=== PATIENT | female | born 1930 | race Caucasian/White ===

== ENCOUNTER 2018-07-06 21:06 | Inpatient (IN) ==
--- NOTE | 2018-07-06 21:42 | ED ---
HPI General Chief complaint: Medical Clearance Stated complaint: Poss DVT Time Seen by Provider: 07/06/18 21:08 Source: patient, EMS and old records reviewed Mode of arrival: EMS Limitations: altered mental status History of Present Illness HPI Narrative: 87 year old female with dementia EVAC from [facility] for possible DVT. She has a history of internal and external illiac thrombectomies on her right leg on 06/13/18, a-fib and a history of DVTs. She was unable to give a history but the EMS said the [facility] employees told them the redness and swelling on the lateral aspect of her right lower leg started yesterday. On exam the patient expresses discontent from all physical touch and when asked directly if her leg hurts she says no. She denies chest pain, SOB, and belly pain. She does have a history of dementia and is documented here. Patient herself cannot really give any history. She does appear to be in some discomfort she does appear to have redness and swelling to the right leg. Home Medications Medication Instructions Recorded Confirmed allopurinol 1 tab PO DAILY 05/23/18 06/12/18 atenolol 0.5 tab PO DAILY 05/23/18 06/12/18 cyanocobalamin (vitamin B-12) 1,000 mcg PO DAILY 05/23/18 06/12/18 [Vitamin B-12] donepezil 1 tab PO HS 05/23/18 06/12/18 gabapentin 1 tab PO HS 05/23/18 06/12/18 levothyroxine 1 tab PO DAILY 05/23/18 06/12/18 memantine 1 tab PO DAILY 05/23/18 06/12/18 mirtazapine 1 tab PO HS 05/23/18 06/12/18 multivitamin 1 tab PO DAILY 05/23/18 06/12/18 torsemide 1 tab PO BID 05/23/18 06/12/18 albuterol sulfate [Ventolin HFA] 2 puff INHALATION Q6H PRN 06/12/18 06/12/18 cholecalciferol (vitamin D3) 1,000 unit PO DAILY 06/12/18 06/12/18 [Vitamin D3] cyanocobalamin (vitamin B-12) 1,000 mcg PO DAILY 06/12/18 06/12/18 [Vitamin B-12] ipratropium-albuterol 3 ml INHALATION Q6H PRN 06/12/18 06/12/18 levothyroxine 175 mcg PO DAILY 06/12/18 06/12/18 potassium chloride 20 meq PO BID 06/12/18 06/12/18 Previous Rx's Medication Instructions Recorded atorvastatin 40 mg PO HS tab 06/19/18 hydrocodone-acetaminophen 1 tab PO Q8H PRN #12 tab 06/19/18 nifedipine [Procardia] 10 mg PO QID cap 06/19/18 rivaroxaban [Xarelto] 15 mg PO BID tab 06/19/18 Allergies Allergy/AdvReac Type Severity Reaction Status Date / Time No Known Allergies Allergy Verified 07/06/18 21:12 Review of Systems ROS: all other systems reviewed are negative [facility] Medical History Medical History Alzheimer disease (Acute) Atrial fibrillation (Acute) DVT (deep venous thrombosis) (Acute) Dementia (Acute) Depressive disorder (Acute) Gout (Acute) HTN (hypertension) (Acute) Hyperchloremia (Acute) Hypothyroidism (Acute) Polyneuropathy (Acute) Surgical history unknown (Acute) Thrombocytopenia (Acute) Family History Family History Other HTN (hypertension) Social History Social History Substance History: No History of Abuse Second Hand Smoke Exposure: No Smoking Status: Former smoker Tobacco Type: Cigarettes How Often Do You Have a Drink Containing Alcohol: Unable to Obtain Recent Travel in [facility] within the Last 8 Weeks: No Recent Out of Country Travel within the Last 8 Weeks: No Immunization History Tetanus Immunization: Unable to Assess Exam Narrative Exam Narrative: GENERAL: Well appearing. SKIN: Focused skin assessment warm/dry. HEAD: Atraumatic. Normocephalic. EYES: Pupils equal and round. No scleral icterus. No injection or drainage. ENT: No nasal bleeding or discharge. Mucous membranes pink and moist. Tongue is midline. No Uvula deviation. NECK: Trachea midline. No JVD. CARDIOVASCULAR: Regular rate and rhythm. No murmur appreciated. RESPIRATORY: No accessory muscle use. Clear to auscultation. Breath sounds equal bilaterally. GASTROINTESTINAL: Abdomen soft, non-tender, nondistended. Hepatic and splenic margins not palpable. MUSCULOSKELETAL: No obvious deformities. No clubbing. No cyanosis. No edema. Full range of motion of the upper and lower extremities bilaterally. Patient does have low pulses noted on the right leg compared to the left. For the most part there is a palpable on the dorsalis pedis. Both pulses are heard in the Doppler bilaterally. 2+ with a Doppler. Patient does have an area of erythema which is about almost 10 cm in diameter by 4 cm she does have what appears to be a small hematoma. Area of erythema is on the lateral aspect of the right lower leg. NEUROLOGICAL: Awake and alert. No obvious cranial nerve deficits. Motor grossly within normal limits. Normal speech. PSYCHIATRIC: Appropriate mood and affect; insight and judgment normal. Course Initial Documented Vital Signs Temperature 97.8 F 07/06/18 21:12 Pulse Rate 56 L 07/06/18 21:12 Respiratory Rate 20 07/06/18 21:12 Blood Pressure 135/72 07/06/18 21:12 Pulse Oximetry 94 L 07/06/18 21:12 Last Documented Vital Signs Temperature 97.8 F 07/06/18 21:12 Pulse Rate 66 07/06/18 23:30 Respiratory Rate 18 07/06/18 23:30 Blood Pressure 117/59 L 07/06/18 23:30 Pulse Oximetry 94 L 07/06/18 23:30 Medical Decision Making GAVINO Attestation GAVINO supervised visit: Yes Attestation: I, Dr. Macdonald, have reviewed the advance practice practitioner' s documentation and am in agreement, met with the patient face to face, made the diagnosis, and the medical decision making was done by me. *My assessment and Findings: 87-year-old female status post right lower extremity thrombectomy presents for evaluation of redness and swelling to the right anterior lower leg. The appearance is most consistent with cellulitis and less likely DVT. However will check ultrasound of right lower extremity. Patient has weakly palpable pulses, so I do not suspect arterial occlusion. We are unable to get CTA due to elevated creatinine. Will admit to medicine for cellulitis and renal failure. MDM Narrative Medical decision making narrative: 87-year-old female who presents to the ED for evaluation of right leg swelling and pain. Patient was properly examined and was found to have signs and symptoms of unclear etiology but does appear to be likely cellulitis. Although her pulses are hard to find they are present. My attending herself evaluated the patient and was able to get pulses but palpable as well as with Doppler. She does appear to have what appears to be cellulitic changes to the lateral aspect of the leg. She has had recent surgery in the leg. At this time labs and imaging were ordered. Ultrasound was done to rule out DVT although this is deemed to be less likely. Patient is already anticoagulated with Xarelto. Patient will start IV antibiotics. Labs and imaging show what appears to be acute kidney injury what appears to be cellulitis. Case discussed with my attending who recommends admission for IV antibiotics and further evaluation. Case discussed with Dr. Rolon who agrees admission for observation further evaluation and treatment. Medical Screen Exam Complete: Yes Emergency Medical Condition: Yes Differential Diagnosis Differential Diagnosis: Cellulitis versus DVT versus peripheral artery disease versus postsurgical complication Medical Records Medical records reviewed: Yes I reviewed the patient's medical records. Lab Data Lab results reviewed: Yes I reviewed the patient's lab results. Result diagrams: 07/06/18 23:25 07/06/18 21:40 Lab Results 07/06/18 07/06/18 07/06/18 Range/Units 21:40 21:40 23:25 WBC 5.9 (4.0-11.0) th/mm3 RBC 3.22 L (4.00-5.30) mil/mm3 Hgb 9.4 L (11.6-15.3) gm/dL Hct 29.1 L (35.0-46.0) % MCV 90.4 (80.0-100.0) fL MCH 29.3 (27.0-34.0) pg MCHC 32.5 (32.0-36.0) % RDW 17.5 H (11.6-17.2) % Plt Count 165 (150-450) th/mm3 MPV 7.2 (7.0-11.0) fL Neut % (Auto) 69.5 (16.0-70.0) % Lymph % (Auto) 17.4 (9.0-44.0) % [place] % (Auto) 7.3 (0.0-8.0) % Eos % (Auto) 5.1 H (0.0-4.0) % Baso % (Auto) 0.7 (0.0-2.0) % Neut # (Auto) 4.1 (1.8-7.7) th/mm3 Lymph # (Auto) 1.0 (1.0-4.8) th/mm3 [place] # (Auto) 0.4 (0.0-0.9) th/mm3 Eos # (Auto) 0.3 (0.0-0.4) th/mm3 Baso # (Auto) 0.0 (0.0-0.2) th/mm3 WBC Differential . Differential Comment Auto diff final PT (9.8-11.6) sec INR Ratio Sodium 142 (136-145) meq/L Potassium 4.5 (3.5-5.1) meq/L Chloride 104 (98-107) meq/L Carbon Dioxide 31.1 (21.0-32.0) meq/L Anion Gap 7 (5-15) meq/L BUN 35 H (7-18) mg/dL Creatinine 1.67 H (0.50-1.00) mg/dL Estimated GFR 29 L (>89) mL/min Random Glucose 137 H (74-106) mg/dL Lactic Acid 1.4 (0.4-2.0) mmol/L Calcium 8.7 (8.5-10.1) mg/dL Magnesium 2.5 (1.5-2.5) mg/dL Total Bilirubin 0.6 (0.2-1.0) mg/dL AST 42 H (15-37) U/L ALT 24 (10-53) U/L Alkaline Phosphatase 98 (45-117) U/L Total Protein 7.3 (6.4-8.2) g/dL Albumin 3.2 L (3.4-5.0) g/dL 07/06/18 Range/Units 23:25 WBC (4.0-11.0) th/mm3 RBC (4.00-5.30) mil/mm3 Hgb (11.6-15.3) gm/dL Hct (35.0-46.0) % MCV (80.0-100.0) fL MCH (27.0-34.0) pg MCHC (32.0-36.0) % RDW (11.6-17.2) % Plt Count (150-450) th/mm3 MPV (7.0-11.0) fL Neut % (Auto) (16.0-70.0) % Lymph % (Auto) (9.0-44.0) % [place] % (Auto) (0.0-8.0) % Eos % (Auto) (0.0-4.0) % Baso % (Auto) (0.0-2.0) % Neut # (Auto) (1.8-7.7) th/mm3 Lymph # (Auto) (1.0-4.8) th/mm3 [place] # (Auto) (0.0-0.9) th/mm3 Eos # (Auto) (0.0-0.4) th/mm3 Baso # (Auto) (0.0-0.2) th/mm3 WBC Differential Differential Comment PT 13.6 H (9.8-11.6) sec INR 1.3 Ratio Sodium (136-145) meq/L Potassium (3.5-5.1) meq/L Chloride (98-107) meq/L Carbon Dioxide (21.0-32.0) meq/L Anion Gap (5-15) meq/L BUN (7-18) mg/dL Creatinine (0.50-1.00) mg/dL Estimated GFR (>89) mL/min Random Glucose (74-106) mg/dL Lactic Acid (0.4-2.0) mmol/L Calcium (8.5-10.1) mg/dL Magnesium (1.5-2.5) mg/dL Total Bilirubin (0.2-1.0) mg/dL AST (15-37) U/L ALT (10-53) U/L Alkaline Phosphatase (45-117) U/L Total Protein (6.4-8.2) g/dL Albumin (3.4-5.0) g/dL Imaging Data Attestation: I personally reviewed and interpreted this imaging study as follows : Radiologist's impression: Chest X-Ray 07/06/18 21:19 CONCLUSION: 1. Mild cardiomegaly. 2. Tiny left pleural effusion. Venous Doppler Study 07/06/18 21:19 CONCLUSION: 1. The study is negative for lower extremity deep venous thrombosis. Discharge Plan Discharge Disposition Patient Disposition: ED Admit(ED Internal Use Only) Discharge Order Discharge Orders: ED Use Only Admit Order (Routine); Ordered 07/06/18 Ordered By: Arcadio Richards Discharge Details Diagnosis: Cellulitis, Peripheral arterial disease Physicians Team ED Provider: Rylee Macdonald ED Midlevel Provider: Arcadio Richards Primary Care Provider: UNKNOWN, Attending Provider: Giovanna Rolon Other Providers: [employer] Status ED Status: Admitted Observation Patient
--- NOTE | 2018-07-06 21:50 | XR ---
EXAM DATE: 07/06/2018 9:45 PM EST AGE/SEX: 87 years / Female INDICATIONS: Cough and shortness of breath. CLINICAL DATA: This is the patient's initial encounter. Patient reports that signs and symptoms have been present for 1 day and indicates a pain score of 0/10. MEDICAL/SURGICAL HISTORY: . Dementia. DVT. A-fib. None. COMPARISON: [facility], CHEST 1V SINGLE AP, 06/15/2018. . FINDINGS: A single AP view of the chest demonstrates the lungs to be symmetrically aerated without evidence of mass, infiltrate or effusion. Mild cardiomegaly. Tiny left pleural effusion. The cardiomediastinal co ntours are unremarkable. Osseous structures are intact. CONCLUSION: 1. Mild cardiomegaly. 2. Tiny left pleural effusion. Electronically signed by: Sixto Soto MD Board Certified Radiologist 07/06/2018 9:48 PM EST
[2018-07-06] MEDS ORDERED: Morphine Inj 4 MG/ML Vial IV.PUSH ONE (21:51)
[2018-07-06 22:19] LABS: Alanine Aminotransferase 24 U/L (10-53)
--- NOTE | 2018-07-06 22:19 | US ---
EXAM DATE: 07/06/2018 10:17 PM EST AGE/SEX: 87 years / Female INDICATIONS: Right leg edema. CLINICAL DATA: This is the patient's initial encounter. Patient reports that signs and symptoms have been present for 1 day and indicates a pain score of 9/10. MEDICAL/SURGICAL HISTORY: Alzheimer's disease. Atrial fibrillation. Dementia. Depressive disord er. DVT. HTN. Hyperchloremia. Hypothyroidism. Polyneuropathy. Thrombocytopenia. None. COMPARISON: [facility] [place], US VENOUS DOPPLER LEG BI, 06/12/2018. . TECHNIQUE: Venous ultrasound of both lower extremities was performed from the inguinal ligament to t he proximal calf. Real-time, color Doppler and spectral tracing, compression and augmentation techni ques were used. FINDINGS: Normal compression of the deep venous system from the inguinal region to the proximal calf . No echogenic clot is seen. Normal response of the venous system to augmentation and respiration. CONCLUSION: 1. The study is negative for lower extremity deep venous thrombosis. Electronically signed by: Sixto Soto MD Board Certified Radiologist 07/06/2018 10:18 PM EST
[2018-07-06 22:21] LABS: Alkaline Phosphatase 98 U/L (45-117); Total Protein 7.3 g/dL (6.4-8.2)
[2018-07-06 22:23] LABS: Albumin 3.2 g/dL (3.4-5.0); Anion Gap 7 meq/L (5-15); Aspartate Aminotransferase 42 U/L (15-37); Blood Urea Nitrogen 35 mg/dL (7-18); Calcium 8.7 mg/dL (8.5-10.1); Carbon Dioxide 31.1 meq/L (21.0-32.0); Chloride 104 meq/L (98-107); Glomerular Filtration Rate 29 mL/min (>89); Glucose,Random 137 mg/dL (74-106); Magnesium 2.5 mg/dL (1.5-2.5); Sodium 142 meq/L (136-145)
[2018-07-06 22:24] LABS: Potassium 4.5 meq/L (3.5-5.1)
[2018-07-06] MEDS ORDERED: Piperacil/Tazo 3.375 GM Premix 3.375 GM/50 ML PIGGYBACK IV.SIG ONE (23:41)
[2018-07-06] MEDS ORDERED: Vancomycin Inj 1,000 MG in Sodium Chlor 0.9% Inj 250 ML IV.SIG ONE (23:41)
[2018-07-06] MEDS ORDERED: Sodium Chlor 0.9% Inj 500 ML IV.SIG SCH (23:45)
[2018-07-06 23:53] LABS: INR 1.3 Ratio; Prothrombin Time 13.6 sec (9.8-11.6)
[2018-07-06 23:55] LABS: Baso % (Auto) 0.7 % (0.0-2.0); Eos # (Auto) 0.3 th/mm3 (0.0-0.4); Eos % (Auto) 5.1 % (0.0-4.0); Hematocrit 29.1 % (35.0-46.0); Hemoglobin 9.4 gm/dL (11.6-15.3); Lymph % (Auto) 17.4 % (9.0-44.0); Mean Corpuscular HGB Conc 32.5 % (32.0-36.0); Mean Corpuscular Hemoglobin 29.3 pg (27.0-34.0); Mean Corpuscular Volume 90.4 fL (80.0-100.0); Mean Platelet Volume 7.2 fL (7.0-11.0); Mono # (Auto) 0.4 th/mm3 (0.0-0.9); Mono % (Auto) 7.3 % (0.0-8.0); Neut # (Auto) 4.1 th/mm3 (1.8-7.7); Neut % (Auto) 69.5 % (16.0-70.0); Platelet Count 165 th/mm3 (150-450); Red Blood Count 3.22 mil/mm3 (4.00-5.30); Red Cell Distribution Width 17.5 % (11.6-17.2); White Blood Count 5.9 th/mm3 (4.0-11.0)
[2018-07-07] MEDS ORDERED: Bisacodyl 10 MG Supp RECTAL PRN (01:43)
[2018-07-07] MEDS ORDERED: Vancomycin Consult Pharmacy OTHER PRN (01:45)
--- NOTE | 2018-07-07 02:52 | P.HPIM ---
History of Present Illness Service: [facility] Primary Care Physician: UNKNOWN Chief Complaint: Right lower extremity cellulitis History of Present Illness: 87-year-old female with a history of dementia, gout , hypertension, hyperlipidemia and hypothyroidism was sent to the ER by nursing facility complaints of redness and swelling to the right lower extremity . Patient is demented so ROS is limited, she is only oriented to self. The ER physician reported the alf after they noticed redness and swelling to her right lower extremity. She did have internal and external iliac thrombectomies on her right leg on 06/13/18. Review of Systems ROS Unobtainable: unobtainable due to mental status [facility] Medical History Medical History Alzheimer disease (Acute) Depressive disorder (Acute) Gout (Acute) HTN (hypertension) (Acute) Hyperchloremia (Acute) Hypothyroidism (Acute) Polyneuropathy (Acute) Surgical history unknown (Acute) Thrombocytopenia (Acute) Atrial fibrillation (Acute) DVT (deep venous thrombosis) (Acute) Dementia (Acute) Family History Family History Other HTN (hypertension) Social History Social History Substance History: No History of Abuse Second Hand Smoke Exposure: No Smoking Status: Former smoker Tobacco Type: Cigarettes How Often Do You Have a Drink Containing Alcohol: Unable to Obtain Recent Travel in [facility] within the Last 8 Weeks: No Recent Out of Country Travel within the Last 8 Weeks: No Immunization History Tetanus Immunization: Unable to Assess Medications and Allergies Allergies Allergy/AdvReac Type Severity Reaction Status Date / Time No Known Allergies Allergy Verified 07/06/18 21:12 Home Medications Medication Instructions Recorded Confirmed Type allopurinol 1 tab PO DAILY 05/23/18 07/07/18 History atenolol 0.5 tab PO DAILY 05/23/18 07/07/18 History cyanocobalamin (vitamin B-12) 1,000 mcg PO DAILY 05/23/18 07/07/18 History [Vitamin B-12] donepezil 1 tab PO HS 05/23/18 07/07/18 History gabapentin 1 tab PO HS 05/23/18 07/07/18 History levothyroxine 1 tab PO DAILY 05/23/18 07/07/18 History memantine 1 tab PO DAILY 05/23/18 07/07/18 History mirtazapine 1 tab PO HS 05/23/18 07/07/18 History multivitamin 1 tab PO DAILY 05/23/18 07/07/18 History torsemide 1 tab PO BID 05/23/18 07/07/18 History albuterol sulfate [Ventolin HFA] 2 puff INHALATION Q6H PRN 06/12/18 07/07/18 History cholecalciferol (vitamin D3) 1,000 unit PO DAILY 06/12/18 07/07/18 History [Vitamin D3] cyanocobalamin (vitamin B-12) 1,000 mcg PO DAILY 06/12/18 07/07/18 History [Vitamin B-12] ipratropium-albuterol 3 ml INHALATION Q6H PRN 06/12/18 07/07/18 History potassium chloride 20 meq PO BID 06/12/18 07/07/18 History Active Medications: Active Medications Acetaminophen (Tylenol) 650 mg PO Q4H PRN PRN Reason: Temp > 100.4 Al Hydroxide/Mg Hydroxide (Milk Of Magnesia Liq) 30 ml PO Q12H PRN PRN Reason: Mild Constipation Bisacodyl (Dulcolax Supp) 10 mg RECTAL DAILY PRN PRN Reason: SEVERE CONSITIPATION Piperacillin/Tazobactam/Dextrose (Zosyn 2.25 Gm Premix) 2.25 gm in 50 mls @ 100 mls/hr IV.SIG Q6H JAVI Lactulose (Lactulose Liq) 30 ml PO DAILY PRN PRN Reason: SEVERE CONSITIPATION Ondansetron HCl (Zofran Inj) 4 mg IV.PUSH Q6H PRN PRN Reason: NAUSEA OR VOMITING Pharmacy Profile Note (Vancomycin Consult Pharmacy) 1 each OTHER UNSCH PRN PRN Reason: Pharmacy to dose Sennosides (Senokot) 17.2 mg PO Q12H PRN PRN Reason: Moderate Constipation Sodium Chloride (Ns Flush) 2 ml IV.FLUSH BID JAVI Sodium Chloride (Ns Flush) 2 ml IV.FLUSH PRN PRN PRN Reason: FLUSH AFTER USING IV ACCESS Physical Exam Vital signs: Vital Signs 07/06/18 21:12 07/06/18 21:28 07/06/18 23:30 Temperature 97.8 F Pulse Rate 56 L 66 Respiratory Rate 20 18 Blood Pressure 135/72 117/59 L Pulse Oximetry 94 L 94 L 94 L 07/07/18 02:01 07/07/18 02:45 07/07/18 02:46 Temperature Pulse Rate 44 L 43 L Respiratory Rate 18 18 18 Blood Pressure 129/63 105/51 L Pulse Oximetry 98 100 Intake & Output 07/06/18 07/06/18 07/07/18 06:59 18:59 06:59 Intake Total 550 / 550 Balance 550 / 550 Weight 102.058 kg Intake: IV 550 / 550 Zosyn 3.375 GM Premix 3.375 gm 50 / 50 In 50 ml @ 100 mls/hr IV.SIG ONCE ONE Rx#:[id number] NS Inj 500 ML @ 1000 mls/hr IV. 500 / 500 SIG BOLUS JAVI Rx#:[id number] Narrative: GENERAL: Well-nourished patient in no acute distress SKIN: Warm and dry. Right franco with area of cellulitis warm to touch with surrounding erythema EYES: No scleral icterus. No injection or drainage. CARDIOVASCULAR: Regular rate and rhythm without murmurs, gallops, or rubs. RESPIRATORY: Breath sounds equal bilaterally. No accessory muscle use. GASTROINTESTINAL: Abdomen soft, non-tender, nondistended. MUSCULOSKELETAL: No cyanosis, or edema. Neurological: Oriented to self Results Labs CBC & Chem 7: 07/06/18 23:25 07/06/18 21:40 Imaging Impressions Chest X-Ray 07/06/18 21:19 CONCLUSION: 1. Mild cardiomegaly. 2. Tiny left pleural effusion. Venous Doppler Study 07/06/18 21:19 CONCLUSION: 1. The study is negative for lower extremity deep venous thrombosis. Caprini VTE Risk Assessment Caprini VTE Risk Assessment: Moderate/High Risk (score >= 2) Caprini Risk Assessment Model: Point Value = 1 Point Value = 2 Point Value = 3 Point Value = 5 Age 41-60 Minor surgery BMI > 25 kg/m2 Swollen legs Varicose veins or History of unexplained or recurrent spontaneous Oral contraceptives or hormone replacement Sepsis (< 1 month) Serious lung disease, including pneumonia (< 1 month) Abnormal pulmonary function Acute myocardial infarction Congestive heart failure (< 1 month) History of inflammatory bowel disease Medical patient at bed rest Age 61-74 Arthroscopic surgery Major open surgery (> 45 min) Laparoscopic surgery (> 45 min) Malignancy Confined to bed (> 72 hours) Immobilizing plaster cast Central venous access Age >= 75 History of VTE Family history of VTE Factor V Leiden Prothrombin [id number] Lupus anticoagulant Anticardiolipin antibodies Elevated serum homocysteine Heparin-induced thrombocytopenia Other congenital or acquired thrombophilia Stroke (< 1 month) Elective arthroplasty Hip, pelvis, or leg fracture Acute spinal cord injury (< 1 month) Prophylaxis Regimen: Total Risk Factor Score Risk Level Prophylaxis Regimen 0-1 Low Early ambulation 2 Moderate Order ONE of the following: *Sequential Compression Device (SCD) *Heparin 5000 units SQ BID 3-4 Higher Order ONE of the following medications: *Heparin 5000 units SQ TID *Enoxaparin/Lovenox 40 mg SQ daily (WT < 150 kg, CrCl > 30 mL/min) *Enoxaparin/Lovenox 30 mg SQ daily (WT < 150 kg, CrCl > 10-29 mL/min) *Enoxaparin/Lovenox 30 mg SQ BID (WT < 150 kg, CrCl > 30 mL/min) AND/OR *Sequential Compression Device (SCD) 5 or more Highest Order ONE of the following medications: *Heparin 5000 units SQ TID (Preferred with Epidurals) *Enoxaparin/Lovenox 40 mg SQ daily (WT < 150 kg, CrCl > 30 mL/min) *Enoxaparin/Lovenox 30 mg SQ daily (WT < 150 kg, CrCl > 10-29 mL/min) *Enoxaparin/Lovenox 30 mg SQ BID (WT < 150 kg, CrCl > 30 mL/min) AND *Sequential Compression Device (SCD) Assessment and Plan Plan 87-year-old female with a history of dementia, gout, hypertension, hyperlipidemia and hypothyroidism was sent to the ER by nursing facility complaints of redness and swelling to the right lower extremity. Cellulitis, right lower extremity Doppler ultrasound negative for DVT -IV antibiotics vancomycin and Zosyn -Elevate -Pain management with p.o. [place] as needed Hypertension, chronic -Resume home medications and monitor Dementia, chronic -Resume home medications DVT prophylaxis: Xarelto The exam, history, and the medical decision-making described in the above note were completed with the assistance of the mid-level provider. I reviewed and agree with the findings presented. I attest that I had a [id number] encounter with the patient on the same day, and personally performed and documented my assessment and findings in the medical record.
[2018-07-07 03:36] LABS: Bilirubin,Urine Negative (Negative); Clarity,Urine Hazy (Clear); Color,Urine Yellow (Yellw/Straw); Glucose,Urine (UA) Negative (Negative); Leukocyte Esterase,Urine Large (Negative); Mucus,Urine Few /lpf (Occasional); Nitrite,Urine Negative (Negative); Squamous Epithelial Cell,Urine 7 /hpf (0-5)
[2018-07-07] MEDS: Levothyroxine 150 MCG Tablet PO SCH (05:07)
[2018-07-07] MEDS: Piperacil/Tazo 2.25 GM Premix 2.25 GM/50 ML PIGGYBACK IV.SIG SCH ×4 (05:23→22:00)
[2018-07-07] MEDS ORDERED: Piperacil/Tazo 3.375 GM Premix 3.375 GM/50 ML PIGGYBACK IV.SIG SCH (06:00)
[2018-07-07] MEDS: Atenolol 25 MG Tablet PO SCH (09:43)
[2018-07-07] MEDS: NIFEdipine 10 MG Capsule PO SCH ×4 (09:47→20:13)
[2018-07-07] MEDS: Allopurinol 100 MG Tablet PO SCH (09:48)
[2018-07-07] MEDS: Torsemide 20 MG Tablet PO SCH ×2 (09:48→20:14)
[2018-07-07] MEDS: Rivaroxaban 15 MG Tablet PO SCH ×2 (09:48→20:13)
--- NOTE | 2018-07-07 10:12 | P.PNIM ---
Subjective Interval history: Follow-up visit right lower extremity cellulitis. Patient seen and examined while resting in bed. She mumbles some words prior to drifting back to sleep when being spoken to. Poor historian, unsure about baseline and will try to contact patients daughter. No distress noted. Right lower extremity elevated on pillow. Redness noted to RLE. Physical Exam Vital signs: Vital Signs 07/06/18 21:12 07/06/18 21:28 07/06/18 23:30 Temperature 97.8 F Pulse Rate 56 L 66 Respiratory Rate 20 18 Blood Pressure 135/72 117/59 L Pulse Oximetry 94 L 94 L 94 L 07/07/18 02:01 07/07/18 02:45 07/07/18 02:46 Temperature Pulse Rate 44 L 43 L Respiratory Rate 18 18 18 Blood Pressure 129/63 105/51 L Pulse Oximetry 98 100 07/07/18 04:00 07/07/18 08:32 Temperature 97.8 F Pulse Rate 50 L 47 L Respiratory Rate 20 16 Blood Pressure 143/62 H 126/58 L Pulse Oximetry 96 95 Intake & Output 07/06/18 07/07/18 07/07/18 18:59 06:59 18:59 Intake Total 880 / 880 Balance 880 / 880 Weight 102.058 kg Intake: IV 850 / 850 Zosyn 2.25 GM Premix 2.25 gm In 50 / 50 50 ml @ 100 mls/hr IV.SIG Q6H [facility] Rx#:[id number] Zosyn 3.375 GM Premix 3.375 gm 50 / 50 In 50 ml @ 100 mls/hr IV.SIG ONCE ONE Rx#:[id number] NS Inj 500 ML @ 1000 mls/hr IV. 500 / 500 SIG BOLUS [facility] Rx#:[id number] Vancomycin Inj 1,000 MG In NS 250 / 250 Inj 250 ML @ 250 mls/hr IV.SIG ONCE ONE Rx#:[id number] Oral 30 / 30 Other: Weight On Admission 102.058 kg Narrative: GENERAL: Well-nourished patient in no acute distress SKIN: Warm and dry. Right franco with area of cellulitis warm to touch with surrounding erythema EYES: No scleral icterus. No injection or drainage. CARDIOVASCULAR: Regular rate and rhythm without murmurs, gallops, or rubs. RESPIRATORY: Breath sounds equal bilaterally. No accessory muscle use. GASTROINTESTINAL: Abdomen soft, non-tender, nondistended. MUSCULOSKELETAL: No cyanosis, or edema. Erythema to RLE. Neurological: Oriented to self Results Labs CBC & Chem 7: 07/06/18 23:25 07/06/18 21:40 Imaging Imaging: Impressions Chest X-Ray 07/06/18 21:19 CONCLUSION: 1. Mild cardiomegaly. 2. Tiny left pleural effusion. Venous Doppler Study 07/06/18 21:19 CONCLUSION: 1. The study is negative for lower extremity deep venous thrombosis. Assessment and Plan Plan 87-year-old female with a history of dementia, gout, hypertension, hyperlipidemia and hypothyroidism was sent to the ER by nursing facility complaints of redness and swelling to the right lower extremity. Cellulitis, right lower extremity -Doppler ultrasound negative for DVT -IV antibiotics vancomycin and Zosyn -Elevate -Pain management with p.o. [place] as needed Recent iliac thrombectomy 06/13/18 -family requesting Dr Flynn to be consulted -consult order placed Hypertension, chronic -Resume home medications and monitor Dementia, chronic -Resume home medications MDM: self Code: Full GI ppx: none DVT prophylaxis: Xarelto Discussed with: RN, supervising MD Dispo: [facility] once medically optimized Progress Note: Quality VTE Deep Vein Thrombosis/Pulmonary Embolism Present on Admission: No
[2018-07-07] MEDS: Mirtazapine 15 MG Tablet PO SCH (20:14)
[2018-07-07] MEDS: Gabapentin 300 MG Capsule PO SCH (20:14)
[2018-07-07] MEDS ORDERED: Morphine Inj 4 MG/ML Vial IV.PUSH ONE (21:52)
[2018-07-08] MEDS: Levothyroxine 150 MCG Tablet PO SCH (06:57)
[2018-07-08 09:00] LABS: Baso % (Auto) 0.5 % (0.0-2.0); Eos # (Auto) 0.3 th/mm3 (0.0-0.4); Eos % (Auto) 4.5 % (0.0-4.0); Hematocrit 29.6 % (35.0-46.0); Hemoglobin 9.7 gm/dL (11.6-15.3); Lymph # (Auto) 0.8 th/mm3 (1.0-4.8); Mean Corpuscular HGB Conc 32.6 % (32.0-36.0); Mean Corpuscular Hemoglobin 29.6 pg (27.0-34.0); Mean Corpuscular Volume 90.8 fL (80.0-100.0); Mean Platelet Volume 7.2 fL (7.0-11.0); Mono # (Auto) 0.5 th/mm3 (0.0-0.9); Mono % (Auto) 7.9 % (0.0-8.0); Neut # (Auto) 4.5 th/mm3 (1.8-7.7); Neut % (Auto) 74.1 % (16.0-70.0); Platelet Count 153 th/mm3 (150-450); Red Blood Count 3.26 mil/mm3 (4.00-5.30); Red Cell Distribution Width 17.8 % (11.6-17.2); White Blood Count 6.1 th/mm3 (4.0-11.0)
[2018-07-08] MEDS: Piperacil/Tazo 2.25 GM Premix 2.25 GM/50 ML PIGGYBACK IV.SIG SCH ×4 (09:08→23:06)
[2018-07-08 09:42] LABS: Calcium 8.6 mg/dL (8.5-10.1); Carbon Dioxide 32.8 meq/L (21.0-32.0); Potassium 3.9 meq/L (3.5-5.1)
[2018-07-08 09:45] LABS: Vancomycin,Random 7.4 Comment
[2018-07-08] MEDS ORDERED: Sod Chloride 0.9% Inj 500 ML IV.CONT SCH ×2 (11:17→11:18)
--- NOTE | 2018-07-08 11:18 | P.PNIM ---
Subjective Interval history: Follow-up visit right lower extremity cellulitis Patient is resting in bed. She reports mild discomfort to right lower extremity. Assisted patient with elevating extremity on pillow. No family members present at bedside. Patient denies numbness or tingling to right lower extremity. No fevers or chills. Physical Exam Vital signs: Vital Signs 07/07/18 12:00 07/07/18 12:18 07/07/18 15:42 Temperature 97.3 F L 97.7 F Pulse Rate 53 L 130 H 51 L Respiratory Rate 16 16 Blood Pressure 122/80 124/58 L Pulse Oximetry 93 L 93 L 07/07/18 20:00 07/07/18 20:10 07/08/18 03:29 Temperature 98.0 F 98.7 F Pulse Rate 45 L 73 Respiratory Rate 16 12 Blood Pressure 125/59 L 136/69 Pulse Oximetry 97 98 92 L 07/08/18 08:00 Temperature 98.5 F Pulse Rate 59 L Respiratory Rate 18 Blood Pressure 135/61 Pulse Oximetry 91 L Intake & Output 07/07/18 07/08/18 07/08/18 18:59 06:59 18:59 Intake Total 100 / 100 260 / 260 Output Total 200 / 200 650 / 650 Balance -100 / -100 -390 / -390 Intake: IV 100 / 100 Zosyn 2.25 GM Premix 2.25 gm In 100 / 100 50 ml @ 100 mls/hr IV.SIG Q6H [facility] Rx#:[id number] Oral 260 / 260 Output: Urine 200 / 200 650 / 650 Other: # Voids 1 Narrative: GENERAL: Well-nourished patient in no acute distress SKIN: Warm and dry. Right franco with area of cellulitis warm to touch with surrounding erythema EYES: No scleral icterus. No injection or drainage. CARDIOVASCULAR: Regular rate and rhythm without murmurs, gallops, or rubs. RESPIRATORY: Breath sounds equal bilaterally. No accessory muscle use. GASTROINTESTINAL: Abdomen soft, non-tender, nondistended. MUSCULOSKELETAL: No cyanosis, or edema. Erythema to RLE. Neurological: Oriented to self Results Labs CBC & Chem 7: 07/08/18 08:07 07/08/18 08:07 Labs: Microbiology 07/06/18 21:35 Blood - Peripheral Aerobic Blood Culture - Preliminary No growth in 2 days 07/06/18 21:35 Blood - Peripheral Anaerobic Blood Culture - Preliminary No growth in 2 days 07/06/18 21:40 Blood - Peripheral Aerobic Blood Culture - Preliminary No growth in 2 days 07/06/18 21:40 Blood - Peripheral Anaerobic Blood Culture - Preliminary No growth in 2 days 07/07/18 02:58 Clean Catch Urine Urine Culture - Preliminary Group D Enterococcus Assessment and Plan Plan 87-year-old female with a history of dementia, gout, hypertension, hyperlipidemia and hypothyroidism was sent to the ER by nursing facility complaints of redness and swelling to the right lower extremity. Cellulitis, right lower extremity -Doppler ultrasound negative for DVT -IV antibiotics vancomycin and Zosyn, pharmacy consulted for Vanc dosing -Elevate -Pain management with p.o. 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 Blood cultures with no growth to date. -continue IV Zosyn Acute kidney injury likely superimposed on chronic kidney disease -BUN 35, Cr 1.67 on arrival, previous admission 06/19/18 BUN 11 and Cr 1.09- 1.26 -gentle hydration with IV fluid -monitor renal function closely -avoid nephrotoxic meds Hypertension, chronic -Resume home medications and monitor Dementia, chronic -Resume home medications MDM: self Code: Full GI ppx: none DVT prophylaxis: Xarelto Discussed with: RN, supervising MD Dispo: patient to return to [facility] once medically optimized Progress Note: Quality VTE Deep Vein Thrombosis/Pulmonary Embolism Present on Admission: No
[2018-07-08] MEDS: Torsemide 20 MG Tablet PO SCH ×2 (11:32→20:49)
[2018-07-08] MEDS: Allopurinol 100 MG Tablet PO SCH (11:32)
[2018-07-08] MEDS: Atenolol 25 MG Tablet PO SCH (11:33)
[2018-07-08] MEDS: NIFEdipine 10 MG Capsule PO SCH ×4 (11:33→20:49)
[2018-07-08] MEDS: Rivaroxaban 15 MG Tablet PO SCH ×2 (11:34→20:50)
[2018-07-08] MEDS ORDERED: Vancomycin Inj 1,500 MG in Sodium Chlor 0.9% Inj 500 ML IV.SIG ONE (13:00)
--- NOTE | 2018-07-08 13:33 | P.CONVS ---
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 She presents with a chief complaint of right calf cellulitis. She is currently at the rehab facility. She is able to walk with a walker with limited movements of the right lower extremity. She reports constant pain involving the right knee and the right foot. She denies any chest pain or shortness of breath. Review of Systems All other systems reviewed negative except as stated in HPI [facility] - History History Provided By: Medical Record - Medical History Medical History: Medical History (Last Reviewed 07/07/18 @ 02:51 by UMER Henriquez) Alzheimer disease Depressive disorder Gout HTN (hypertension) Hyperchloremia Hypothyroidism Polyneuropathy Surgical history unknown Thrombocytopenia Atrial fibrillation DVT (deep venous thrombosis) Dementia - Family History Family History: Family History (Last Reviewed 07/07/18 @ 02:57 by UMER Henriquez) Other HTN (hypertension) - Tobacco History Second Hand Smoke Exposure: No Smoking Status: Former smoker Tobacco Type: Cigarettes - Alcohol History How Often Do You Have a Drink Containing Alcohol: Unable to Obtain - Substance Use History Substance History: No History of Abuse - Travel History Recent Travel in the [place] Within the Last 8 Weeks: No Recent Travel Out of the Country Within the Last 8 Weeks: No - Immunization History Tetanus Immunization: Unable to Assess Medications and Allergies Active Medications: Active Medications Acetaminophen (Tylenol) 650 mg PO Q4H PRN PRN Reason: Temp > 100.4 Hydrocodone Bitart/Acetaminophen (Mulvane 5/325) 1 tab PO Q8H PRN PRN Reason: Pain (Scale Score 7-10) Last Admin: 07/08/18 12:19 Dose: 1 tab Al Hydroxide/Mg Hydroxide (Milk Of Magnesia Liq) 30 ml PO Q12H PRN PRN Reason: Mild Constipation Allopurinol (Zyloprim) 100 mg PO DAILY [facility] Last Admin: 07/08/18 11:32 Dose: 100 mg Atenolol (Tenormin) 12.5 mg PO DAILY [facility] Last Admin: 07/08/18 11:33 Dose: Not Given Atorvastatin Calcium (Lipitor) 40 mg PO HS [facility] Last Admin: 07/07/18 20:13 Dose: 40 mg Bisacodyl (Dulcolax Supp) 10 mg RECTAL DAILY PRN PRN Reason: SEVERE CONSITIPATION Donepezil HCl (Aricept) 5 mg PO [facility] Last Admin: 07/07/18 20:14 Dose: 5 mg Gabapentin (Neurontin) 300 mg PO [facility] Last Admin: 07/07/18 20:14 Dose: 300 mg Piperacillin/Tazobactam/Dextrose (Zosyn 2.25 Gm Premix) 2.25 gm in 50 mls @ 100 mls/hr IV.SIG Q6H [facility] Last Admin: 07/08/18 12:55 Dose: 100 mls/hr Vancomycin HCl 1,500 mg/ (Sodium Chloride) 515 mls @ 257.5 mls/hr IV.SIG ONCE ONE Stop: 07/08/18 14:59 Sodium Chloride (Ns Inj) 500 mls @ 84 mls/hr IV.CONT .Q5H58M [facility] Stop: 07/08/18 17:14 Last Admin: 07/08/18 12:54 Dose: 84 mls/hr Lactulose (Lactulose Liq) 30 ml PO DAILY PRN PRN Reason: SEVERE CONSITIPATION Levothyroxine Sodium (Synthroid) 150 mcg PO DAILY@0600 [facility] Last Admin: 07/08/18 06:57 Dose: 150 mcg Memantine (Namenda) 10 mg PO BID [facility] Last Admin: 07/08/18 11:33 Dose: 10 mg Mirtazapine (Remeron) 30 mg PO [facility] Last Admin: 07/07/18 20:14 Dose: 30 mg Miscellaneous (Pill Splitter) 1 each OTHER PRN PRN PRN Reason: SEE LABEL COMMENTS Nifedipine (Procardia) 10 mg PO QID [facility] Last Admin: 07/08/18 12:45 Dose: Not Given Ondansetron HCl (Zofran Inj) 4 mg IV.PUSH Q6H PRN PRN Reason: NAUSEA OR VOMITING Pharmacy Profile Note (Vancomycin Consult Pharmacy) 1 each OTHER UNSCH PRN PRN Reason: Pharmacy to dose Potassium Chloride (K-Dur) 20 meq PO BID [facility] Last Admin: 07/08/18 11:34 Dose: 20 meq Rivaroxaban (Xarelto) 15 mg PO BID [facility] Last Admin: 07/08/18 11:34 Dose: 15 mg Sennosides (Senokot) 17.2 mg PO Q12H PRN PRN Reason: Moderate Constipation Sodium Chloride (Ns Flush) 2 ml IV.FLUSH BID [facility] Last Admin: 07/08/18 11:34 Dose: 2 ml Sodium Chloride (Ns Flush) 2 ml IV.FLUSH PRN PRN PRN Reason: FLUSH AFTER USING IV ACCESS Torsemide (Demadex) 20 mg PO BID [facility] Last Admin: 07/08/18 11:32 Dose: 20 mg Allergies Allergy/AdvReac Type Severity Reaction Status Date / Time No Known Allergies Allergy Verified 07/06/18 21:12 Home Medications Medication Instructions Recorded Confirmed Type allopurinol 1 tab PO DAILY 05/23/18 07/07/18 History atenolol 0.5 tab PO DAILY 05/23/18 07/07/18 History cyanocobalamin (vitamin B-12) 1,000 mcg PO DAILY 05/23/18 07/07/18 History [Vitamin B-12] donepezil 1 tab PO HS 05/23/18 07/07/18 History gabapentin 1 tab PO HS 05/23/18 07/07/18 History levothyroxine 1 tab PO DAILY 05/23/18 07/07/18 History memantine 1 tab PO DAILY 05/23/18 07/07/18 History mirtazapine 1 tab PO HS 05/23/18 07/07/18 History multivitamin 1 tab PO DAILY 05/23/18 07/07/18 History torsemide 1 tab PO BID 05/23/18 07/07/18 History albuterol sulfate [Ventolin HFA] 2 puff INHALATION Q6H PRN 06/12/18 07/07/18 History cholecalciferol (vitamin D3) 1,000 unit PO DAILY 06/12/18 07/07/18 History [Vitamin D3] cyanocobalamin (vitamin B-12) 1,000 mcg PO DAILY 06/12/18 07/07/18 History [Vitamin B-12] ipratropium-albuterol 3 ml INHALATION Q6H PRN 06/12/18 07/07/18 History potassium chloride 20 meq PO BID 06/12/18 07/07/18 History Physical Exam Vital Signs / I&O: Vital Signs 07/07/18 15:42 07/07/18 20:00 07/07/18 20:10 Temperature 97.7 F 98.0 F Pulse Rate 51 L 45 L Respiratory Rate 16 16 Blood Pressure 124/58 L 125/59 L Pulse Oximetry 93 L 97 98 07/08/18 03:29 07/08/18 08:00 07/08/18 12:00 Temperature 98.7 F 98.5 F 98 F Pulse Rate 73 59 L 52 L Respiratory Rate 12 18 20 Blood Pressure 136/69 135/61 115/55 L Pulse Oximetry 92 L 91 L 90 L Intake & Output 07/07/18 07/08/18 07/08/18 18:59 06:59 18:59 Intake Total 100 / 100 260 / 260 50 / 50 Output Total 200 / 200 650 / 650 Balance -100 / -100 -390 / -390 50 / 50 Intake: IV 100 / 100 50 / 50 Zosyn 2.25 GM Premix 2.25 gm In 100 / 100 50 / 50 50 ml @ 100 mls/hr IV.SIG Q6H [facility] Rx#:[id number] Oral 260 / 260 Output: Urine 200 / 200 650 / 650 Other: # Voids 1 Neuro: Confused. No neurological deficits bilaterally. HEENT: Normocephalic atraumatic Neck: Supple Heart: S1-S2, irregularly irregular Lungs: Clear to auscultation Abdomen: Soft nontender nondistended Vascular: Palpable right dorsalis pedis pulse. There is an area of ecchymosis with surrounding erythema involving the lateral aspect of the right calf. Patient able to plantarflex and dorsiflex the right foot. Soft right calf with no evidence of compartment syndrome. Limited flexion of the right knee due to pain. Laboratory Results - last 24 hr 07/07/18 07/08/18 07/08/18 02:58 08:07 08:07 WBC 6.1 RBC 3.26 L Hgb 9.7 L Hct 29.6 L MCV 90.8 MCH 29.6 MCHC 32.6 RDW 17.8 H Plt Count 153 MPV 7.2 Neut % (Auto) 74.1 H Lymph % (Auto) 13.0 Granite % (Auto) 7.9 Eos % (Auto) 4.5 H Baso % (Auto) 0.5 Neut # (Auto) 4.5 Lymph # (Auto) 0.8 L [place]ite # (Auto) 0.5 Eos # (Auto) 0.3 Baso # (Auto) 0.0 WBC Differential . Differential Comment Auto diff final Sodium 143 Potassium 3.9 Chloride 105 Carbon Dioxide 32.8 H Anion Gap 5 BUN 27 H Creatinine 1.60 H Estimated GFR 30 L Random Glucose 132 H Calcium 8.6 Urine Color Yellow Urine Clarity Hazy H Urine pH 6.0 Ur Specific Terry 1.010 Urine Protein Negative Urine Glucose (UA) Negative Urine Ketones Negative Urine Occult Blood Negative Urine Nitrate Negative Urine Bilirubin Negative Urine Urobilinogen Less than 2 Ur Leukocyte Esterase Large H Urine RBC 2 Urine WBC 18 H Ur Squamous Epith Cells 7 Urine Mucus Few H Micro UA Comment Culture indicated Urine Culture Comments Culture indicated Random Vancomycin 7.4 Microbiology 07/06/18 21:35 Aerobic Blood Culture - Preliminary Blood - Peripheral No growth in 2 days Anaerobic Blood Culture - Preliminary No growth in 2 days 07/06/18 21:40 Aerobic Blood Culture - Preliminary Blood - Peripheral No growth in 2 days Anaerobic Blood Culture - Preliminary No growth in 2 days 07/07/18 02:58 Urine Culture - Preliminary Clean Catch Urine Group D Enterococcus Impressions Chest X-Ray 07/06/18 21:19 CONCLUSION: 1. Mild cardiomegaly. 2. Tiny left pleural effusion. Venous Doppler Study 07/06/18 21:19 CONCLUSION: 1. The study is negative for lower extremity deep venous thrombosis. Assessment and Plan - Plan 1. 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 Right lower extremity is viable with no evidence of acute limb ischemia or compartment syndrome. Numbness that involved the right foot and right calf could be related to the initial ischemic insult. 2. Ecchymosis and cellulitis involving the right lower extremity This could be related to trauma to the right lower extremity. Patient is currently improving with antibiotics. We will continue to follow Thank you for allowing us to participate in this patient care. Abraham Flynn MD [facility] [phone]
[2018-07-08] MEDS: Gabapentin 300 MG Capsule PO SCH (20:50)
[2018-07-08] MEDS: Mirtazapine 15 MG Tablet PO SCH (20:50)
[2018-07-08] MEDS ORDERED: Haloperidol Inj 5 MG/ML Ampul IM ONE (23:03)
[2018-07-09] MEDS: Piperacil/Tazo 2.25 GM Premix 2.25 GM/50 ML PIGGYBACK IV.SIG SCH ×2 (05:16→13:58)
[2018-07-09] MEDS: Levothyroxine 150 MCG Tablet PO SCH (06:44)
[2018-07-09] MEDS: NIFEdipine 10 MG Capsule PO SCH ×4 (09:25→22:06)
[2018-07-09] MEDS: Torsemide 20 MG Tablet PO SCH ×2 (09:26→21:20)
[2018-07-09] MEDS: Allopurinol 100 MG Tablet PO SCH (09:26)
[2018-07-09] MEDS: Rivaroxaban 15 MG Tablet PO SCH ×2 (09:27→22:06)
[2018-07-09] MEDS: Atenolol 25 MG Tablet PO SCH (09:28)
[2018-07-09] MEDS ORDERED: Sod Chloride 0.9% Inj 1,000 ML IV.CONT SCH (09:48)
--- NOTE | 2018-07-09 09:51 | P.PNIM ---
Addendum entered and electronically signed by Tony Yo APRN 07/09/18 17:46 : Patient removing peripheral IV and supplemental O2. Her O2 saturations drop into the 80's on room air and cxr concerning for pneumonia. Bilateral mittens ordered. Original Note: Subjective Interval history: Follow-up visit right lower extremity cellulitis, hypoxia Patient is resting in bed. She is confused and she took out her IV at some point and placed it on her tray table. When asked if she removed her IV she states she is unsure. Patient reports pain when attempting to touch her right lower extremity or attempting to reposition. Erythema improved. She denies pain at rest. No nausea or vomiting. She is currently on supplemental O2 via nasal cannula. RN states patient frequently removes her oxygen and her sats drop into the 80's. Discussed with patient the importance of wearing her supplemental oxygen and assisted with applying it back and securing it. Physical Exam Vital signs: Vital Signs 07/08/18 12:00 07/08/18 16:00 07/08/18 20:00 Temperature 98 F 97.9 F 98.2 F Pulse Rate 52 L 52 L 55 L Respiratory Rate 20 20 16 Blood Pressure 115/55 L 119/58 L 133/58 L Pulse Oximetry 90 L 92 L 100 07/09/18 00:00 07/09/18 03:42 07/09/18 07:46 Temperature 98 F 98.5 F Pulse Rate 58 L 62 62 Respiratory Rate 16 20 Blood Pressure 122/57 L 117/58 L Pulse Oximetry 83 L 89 L 07/09/18 08:00 Temperature Pulse Rate 60 Respiratory Rate 14 Blood Pressure Pulse Oximetry Intake & Output 07/08/18 07/09/18 07/09/18 18:59 06:59 18:59 Intake Total 965 / 965 100 / 100 Output Total 200 / 200 Balance 765 / 765 100 / 100 Intake: IV 965 / 965 100 / 100 NS Inj 500 ML @ 84 mls/hr IV. 300 / 300 CONT .Q5H58M [facility] Rx#:[id number] Zosyn 2.25 GM Premix 2.25 gm In 150 / 150 100 / 100 50 ml @ 100 mls/hr IV.SIG Q6H [facility] Rx#:[id number] Vancomycin Inj 1,500 MG In NS 515 / 515 Inj 500 ML @ 257.5 mls/hr IV. SIG ONCE ONE Rx#:[id number] Output: Urine 200 / 200 Other: Date of Last Bowel Movement 07/08/18 07/08/18 Narrative: GENERAL: Well-nourished patient in no acute distress SKIN: Warm and dry. Right franco with area of cellulitis warm to touch with surrounding erythema EYES: No scleral icterus. No injection or drainage. CARDIOVASCULAR: Regular rate and rhythm without murmurs, gallops, or rubs. RESPIRATORY: Breath sounds equal bilaterally. No accessory muscle use. GASTROINTESTINAL: Abdomen soft, non-tender, nondistended. MUSCULOSKELETAL: No cyanosis, or edema. Erythema to RLE. Neurological: Oriented to self Results Labs CBC & Chem 7: 07/08/18 08:07 07/09/18 05:47 Labs: Microbiology 07/07/18 02:58 Clean Catch Urine Urine Culture - Final Enterococcus faecalis 07/06/18 21:35 Blood - Peripheral Aerobic Blood Culture - Preliminary No growth in 2 days 07/06/18 21:35 Blood - Peripheral Anaerobic Blood Culture - Preliminary No growth in 2 days 07/06/18 21:40 Blood - Peripheral Aerobic Blood Culture - Preliminary No growth in 2 days 07/06/18 21:40 Blood - Peripheral Anaerobic Blood Culture - Preliminary No growth in 2 days Assessment and Plan Plan 87-year-old female with a history of dementia, gout, hypertension, hyperlipidemia and hypothyroidism was sent to the ER by nursing facility complaints of redness and swelling to the right lower extremity. Cellulitis, right lower extremity -Doppler ultrasound negative for DVT -IV antibiotics vancomycin and Zosyn, pharmacy consulted for Vanc dosing -Elevate RLE -Pain management with p.o. 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 Signed off. Probable pneumonia, HAP -repeat chest x-ray shows mild infiltrate and small effusion in left lower lung -continue supplemental O2, duoneb scheduled -Vanc dosing per pharmacy, continue IV Zosyn Acute hypoxic respiratory failure -likely secondary to above -O2 sats in the 80's on room air -ABG with pO2 of 53 -supplemental O2, patient keeps removing her nasal cannula. Frequent education and explanation of need of supplemental O2. Abnormal UA/UTI -urine culture with Enterococcus faecalis and mixed gram positive brendon, probable contaminants -Blood cultures with no growth to date. -pt on antibiotics for cellulitis Acute kidney injury likely superimposed on chronic kidney disease -previous admission 06/19/18 BUN 11 and Cr 1.09-1.26 -continue gentle hydration with IV fluid -monitor renal function closely -avoid nephrotoxic meds Hypertension, chronic -Resume home medications and monitor Dementia, chronic -Resume home medications MDM: self Code: Full GI ppx: none DVT prophylaxis: Xarelto Discussed with: RN, supervising MD Dispo: patient to return to [facility] once medically optimized Progress Note: Quality VTE Deep Vein Thrombosis/Pulmonary Embolism Present on Admission: No
[2018-07-09 13:41] LABS: ABG Base Excess 9.8 mmol/L (-2-2); ABG PCO2 47 mmHg (38-42); ABG PO2 53 mmHg (61-120)
--- NOTE | 2018-07-09 14:06 | XR ---
EXAM DATE: 07/09/2018 2:02 PM EST AGE/SEX: 87 years / Female INDICATIONS: Short of breath. CLINICAL DATA: This is the patient's subsequent encounter. Patient reports that signs and symptoms h ave been present for 4 - 6 days and indicates a pain score of 0/10. MEDICAL/SURGICAL HISTORY: . Dementia. DVT. A-fib. None. COMPARISON: C, CHEST 1V SINGLE AP, 07/06/2018. . FINDINGS: On today's exam is a mild infiltrate in the left lung base with a small effusion. Otherwise, the rest the lungs remain clear and well-aerated. The heart size is enlarged but stable. The bony structures are stable. No other significant changes are seen compared to the prior study. CONCLUSION: Mild infiltrate and small effusion in the left lower lung. Electronically signed by: Ham Agrawal MD Board Certified Radiologist 07/09/2018 2:05 PM EST
--- NOTE | 2018-07-09 14:48 | P.PNVS ---
Subjective Subjective/Hospital Course: Denies RLE pain Objective Vital Signs / I&O: Vital Signs 07/08/18 16:00 07/08/18 20:00 07/09/18 00:00 Temperature 97.9 F 98.2 F Pulse Rate 52 L 55 L 58 L Respiratory Rate 20 16 Blood Pressure 119/58 L 133/58 L Pulse Oximetry 92 L 100 07/09/18 03:42 07/09/18 07:46 07/09/18 08:00 Temperature 98 F 98.5 F Pulse Rate 62 62 60 Respiratory Rate 16 20 14 Blood Pressure 122/57 L 117/58 L Pulse Oximetry 83 L 89 L 07/09/18 11:40 Temperature 98.5 F Pulse Rate 62 Respiratory Rate 18 Blood Pressure 127/56 L Pulse Oximetry 92 L Intake & Output 07/08/18 07/09/18 07/09/18 18:59 06:59 18:59 Intake Total 965 / 965 100 / 100 Output Total 200 / 200 Balance 765 / 765 100 / 100 Intake: IV 965 / 965 100 / 100 NS Inj 500 ML @ 84 mls/hr IV. 300 / 300 CONT .Q5H58M [facility] Rx#:[id number] Zosyn 2.25 GM Premix 2.25 gm In 150 / 150 100 / 100 50 ml @ 100 mls/hr IV.SIG Q6H [facility] Rx#:[id number] Vancomycin Inj 1,500 MG In NS 515 / 515 Inj 500 ML @ 257.5 mls/hr IV. SIG ONCE ONE Rx#:[id number] Output: Urine 200 / 200 Other: Date of Last Bowel Movement 07/08/18 07/08/18 Physical Exam: RLE cellulitis resolving Palpable DP pulse Laboratory Results - last 24 hr 07/09/18 07/09/18 07/09/18 05:47 05:47 13:36 Puncture Site Left radial Patient Temperature 98.6 O2 Saturation 85 L* ABG pH 7.47 H ABG pCO2 47 H ABG pO2 53 L* ABG HCO3 34 H ABG O2 Content 11.8 L ABG Base Excess 9.8 H ABG Methemoglobin 0.4 Pradeep Test Y Hemoglobin 9.8 L Carboxyhemoglobin 2.6 O2 Delivery Device Room air Inspired O2 21 Critical Value Yes Creatinine 1.47 H Estimated GFR 34 L Random Vancomycin 19.0 Microbiology 07/06/18 21:35 Aerobic Blood Culture - Preliminary Blood - Peripheral No growth in 3 days Anaerobic Blood Culture - Preliminary No growth in 3 days 07/06/18 21:40 Aerobic Blood Culture - Preliminary Blood - Peripheral No growth in 3 days Anaerobic Blood Culture - Preliminary No growth in 3 days 07/07/18 02:58 Urine Culture - Final Clean Catch Urine Enterococcus faecalis Impressions Chest X-Ray 07/09/18 00:00 CONCLUSION: Mild infiltrate and small effusion in the left lower lung. Assessment and Plan - Plan RLE cellulitis Continue with ABX no vascular intervention required at this time Abraham Flynn MD [facility] [phone]
[2018-07-09] MEDS: Piperacil/Tazo 3.375 GM Premix 3.375 GM/50 ML PIGGYBACK IV.SIG SCH (21:17)
[2018-07-09] MEDS: Mirtazapine 15 MG Tablet PO SCH (21:19)
[2018-07-09] MEDS: Gabapentin 300 MG Capsule PO SCH (21:19)
[2018-07-10] MEDS: Piperacil/Tazo 3.375 GM Premix 3.375 GM/50 ML PIGGYBACK IV.SIG SCH ×4 (00:22→17:06)
[2018-07-10] MEDS: Levothyroxine 150 MCG Tablet PO SCH (06:18)
[2018-07-10] MEDS: Atenolol 25 MG Tablet PO SCH (09:37)
[2018-07-10] MEDS: NIFEdipine 10 MG Capsule PO SCH ×4 (09:37→21:18)
[2018-07-10] MEDS: Allopurinol 100 MG Tablet PO SCH (09:38)
[2018-07-10] MEDS: Rivaroxaban 15 MG Tablet PO SCH ×2 (09:38→21:18)
[2018-07-10] MEDS: Torsemide 20 MG Tablet PO SCH ×2 (09:38→21:18)
--- NOTE | 2018-07-10 10:58 | P.PNVS ---
Subjective Subjective/Hospital Course: Patient is confused but reports that her right upper extremity pain is resolved Objective Vital Signs / I&O: Vital Signs 07/09/18 11:40 07/09/18 16:35 07/09/18 20:00 Temperature 98.5 F 98.3 F 98.2 F Pulse Rate 62 70 69 Respiratory Rate 18 20 20 Blood Pressure 127/56 L 113/62 136/63 Pulse Oximetry 92 L 100 07/09/18 21:00 07/09/18 21:24 07/10/18 00:00 Temperature 97.9 F 97.6 F Pulse Rate 69 79 66 Respiratory Rate 18 16 18 Blood Pressure 129/63 138/65 Pulse Oximetry 99 98 07/10/18 04:00 07/10/18 08:50 Temperature Pulse Rate 74 75 Respiratory Rate 16 Blood Pressure Pulse Oximetry Intake & Output 07/09/18 07/10/18 07/10/18 18:59 06:59 18:59 Weight 102.1 kg Other: # Voids 3 Date of Last Bowel Movement 07/09/18 07/09/18 # Bowel Movements 3 Physical Exam: Right lower extremity cellulitis resolving Palpable DP pulse Laboratory Results - last 24 hr 07/09/18 13:36 Puncture Site Left radial Patient Temperature 98.6 O2 Saturation 85 L* ABG pH 7.47 H ABG pCO2 47 H ABG pO2 53 L* ABG HCO3 34 H ABG O2 Content 11.8 L ABG Base Excess 9.8 H ABG Methemoglobin 0.4 Pradeep Test Y Hemoglobin 9.8 L Carboxyhemoglobin 2.6 O2 Delivery Device Room air Inspired O2 21 Critical Value Yes Microbiology 07/06/18 21:35 Aerobic Blood Culture - Preliminary Blood - Peripheral No growth in 3 days Anaerobic Blood Culture - Preliminary No growth in 3 days 07/06/18 21:40 Aerobic Blood Culture - Preliminary Blood - Peripheral No growth in 3 days Anaerobic Blood Culture - Preliminary No growth in 3 days 07/07/18 02:58 Urine Culture - Final Clean Catch Urine Enterococcus faecalis Impressions Chest X-Ray 07/09/18 00:00 CONCLUSION: Mild infiltrate and small effusion in the left lower lung. Assessment and Plan - Plan RLE cellulitis Stable for discharge from vascular surgery standpoint. We will schedule the patient follow-up appointment in 2 weeks with an [facility] Office will call patient on Thursday to schedule appointment Abraham Flynn MD [facility] [phone]
[2018-07-10 11:41] LABS: Baso % (Auto) 0.7 % (0.0-2.0); Eos # (Auto) 0.4 th/mm3 (0.0-0.4); Eos % (Auto) 7.4 % (0.0-4.0); Hematocrit 34.6 % (35.0-46.0); Hemoglobin 11.2 gm/dL (11.6-15.3); Lymph # (Auto) 0.7 th/mm3 (1.0-4.8); Lymph % (Auto) 11.7 % (9.0-44.0); Mean Corpuscular HGB Conc 32.4 % (32.0-36.0); Mean Corpuscular Hemoglobin 29.9 pg (27.0-34.0); Mean Corpuscular Volume 92.2 fL (80.0-100.0); Mean Platelet Volume 7.2 fL (7.0-11.0); Mono # (Auto) 0.3 th/mm3 (0.0-0.9); Mono % (Auto) 5.7 % (0.0-8.0); Neut # (Auto) 4.2 th/mm3 (1.8-7.7); Neut % (Auto) 74.5 % (16.0-70.0); Platelet Count 157 th/mm3 (150-450); Red Blood Count 3.75 mil/mm3 (4.00-5.30); Red Cell Distribution Width 17.4 % (11.6-17.2); White Blood Count 5.6 th/mm3 (4.0-11.0)
--- NOTE | 2018-07-10 11:55 | P.PNIM ---
Subjective Interval history: Follow up on patient with RLE cellulitis, hypoxia. Patient seen and examined. Patient appears comfortable sitting in bed watching TV. She is confused. She does not voice any acute medical complaints or concerns but is noted to have some discomfort with palpation of her right lower extremity. She denies any fever or chills. She denies any chest pain or shortness of breath. Patient states she does not use oxygen at home however given her degree of dementia she is not a reliable historian. Physical Exam Vital signs: Vital Signs 07/09/18 16:35 07/09/18 20:00 07/09/18 21:00 Temperature 98.3 F 98.2 F 97.9 F Pulse Rate 70 69 69 Respiratory Rate 20 20 18 Blood Pressure 113/62 136/63 129/63 Pulse Oximetry 100 99 07/09/18 21:24 07/10/18 00:00 07/10/18 04:00 Temperature 97.6 F Pulse Rate 79 66 74 Respiratory Rate 16 18 Blood Pressure 138/65 Pulse Oximetry 98 07/10/18 08:00 07/10/18 08:50 Temperature 97.5 F L Pulse Rate 71 75 Respiratory Rate 15 16 Blood Pressure 124/60 Pulse Oximetry 94 L Intake & Output 07/09/18 07/10/18 07/10/18 18:59 06:59 18:59 Weight 102.1 kg Other: # Voids 3 Date of Last Bowel Movement 07/09/18 07/09/18 # Bowel Movements 3 Narrative: GENERAL: WDWN elderly female patient, INAD. Awake and alert. Appears comfortable. Confused. SKIN: Warm and dry. HEENT: Atraumatic. Normocephalic. Pupils equal and round. No scleral icterus. No nasal discharge. Mucous membranes pink and moist. NECK: Trachea midline. CARDIOVASCULAR: Regular rate and rhythm. RESPIRATORY: No accessory muscle use. Clear to auscultation. Breath sounds equal bilaterally. GASTROINTESTINAL: Abdomen soft, non-tender, nondistended. +BS. MUSCULOSKELETAL: Extremities without clubbing, cyanosis, or edema. +area of resolving erythema right anterior tibia, +tender to palpation. No induration noted. NEUROLOGICAL: Awake and alert. Oriented to self only. No obvious cranial nerve deficits. Able to move all extremities spontaneously. Normal speech. PSYCHIATRIC: Calm and cooperative. Results Labs CBC & Chem 7: 07/10/18 10:55 07/12/18 07:41 Labs: Microbiology 07/06/18 21:35 Blood - Peripheral Aerobic Blood Culture - Preliminary No growth in 4 days 07/06/18 21:35 Blood - Peripheral Anaerobic Blood Culture - Preliminary No growth in 4 days 07/06/18 21:40 Blood - Peripheral Aerobic Blood Culture - Preliminary No growth in 4 days 07/06/18 21:40 Blood - Peripheral Anaerobic Blood Culture - Preliminary No growth in 4 days 07/07/18 02:58 Clean Catch Urine Urine Culture - Final Enterococcus faecalis Imaging Imaging: Impressions Chest X-Ray 07/09/18 00:00 CONCLUSION: Mild infiltrate and small effusion in the left lower lung. Assessment and Plan Plan 87-year-old female with a history of dementia, gout, hypertension, hyperlipidemia and hypothyroidism was sent to the ER by nursing facility complaints of redness and swelling to the right lower extremity. Cellulitis, right lower extremity -Doppler ultrasound negative for DVT -Treated with IV Zosyn and Vancomycin. Will likely de-escalate antibiotics tomorrow. -Elevate RLE -Pain management with p.o. 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 Signed off. Probable pneumonia, HAP -repeat chest x-ray shows mild infiltrate and small effusion in left lower lung -continue supplemental O2, duoneb scheduled -Continue IV Zosyn -will likely de-escalate antibiotics tomorrow Acute hypoxic respiratory failure -likely secondary to above -O2 sats in the 80's on room air -ABG with pO2 of 53 -supplemental O2, patient keeps removing her nasal cannula. Frequent education and explanation of need of supplemental O2. Abnormal UA/UTI -urine culture with Enterococcus faecalis and mixed gram positive brendon, probable contaminants -Blood cultures with no growth to date. -pt on antibiotics for cellulitis TABITHA on Chronic kidney disease, stage III -creatinine is improving -monitor renal function closely -avoid nephrotoxic meds Hypertension, chronic -continue on home medications and monitor Dementia, chronic -continue on home medications DVT prophylaxis -patient is on Xarelto Code Status: FULL Discussed Condition With: patient, nursing staff, Dr. Londono Progress Note: Quality VTE Deep Vein Thrombosis/Pulmonary Embolism Present on Admission: No
[2018-07-10 12:03] LABS: Calcium 8.9 mg/dL (8.5-10.1); Carbon Dioxide 32.8 meq/L (21.0-32.0); Potassium 3.9 meq/L (3.5-5.1)
[2018-07-10 12:05] LABS: Vancomycin,Random 12.1 Comment
[2018-07-10] MEDS ORDERED: Vancomycin Inj 1,500 MG in Sodium Chlor 0.9% Inj 500 ML IV.SIG ONE (14:00)
[2018-07-10] MEDS: Gabapentin 300 MG Capsule PO SCH (21:18)
[2018-07-10] MEDS: Mirtazapine 15 MG Tablet PO SCH (21:18)
[2018-07-11] MEDS: Piperacil/Tazo 3.375 GM Premix 3.375 GM/50 ML PIGGYBACK IV.SIG SCH ×2 (00:05→05:29)
[2018-07-11] MEDS: Levothyroxine 150 MCG Tablet PO SCH (05:29)
[2018-07-11] MEDS: Torsemide 20 MG Tablet PO SCH ×2 (09:38→21:17)
[2018-07-11] MEDS: Rivaroxaban 15 MG Tablet PO SCH ×2 (09:38→21:17)
[2018-07-11] MEDS: NIFEdipine 10 MG Capsule PO SCH ×4 (09:38→22:00)
[2018-07-11] MEDS: Atenolol 25 MG Tablet PO SCH (09:38)
[2018-07-11] MEDS: Allopurinol 100 MG Tablet PO SCH (09:38)
--- NOTE | 2018-07-11 13:17 | XR ---
EXAM DATE: 07/11/2018 12:56 PM EST AGE/SEX: 87 years / Female INDICATIONS: Right hip pain. CLINICAL DATA: This is the patient's initial encounter. Patient reports that signs and symptoms have been present for 1 day and indicates a pain score of 4/10. MEDICAL/SURGICAL HISTORY: . Dementia. DVT. A-fib. None. COMPARISON: No prior exams available for comparison. FINDINGS: Moderate osteoarthritis right hip. No acute fracture or dislocation. No bony destructive changes. CONCLUSION: No acute bony abnormalities identified at the right hip. Electronically signed by: Tre Sanon MD Board Certified Radiologist 07/11/2018 1:15 PM EST
--- NOTE | 2018-07-11 13:33 | P.PNIM ---
Subjective Interval history: Follow up on patient with RLE cellulitis, PNA. Patient seen and examined. Patient states her the lower part of her right leg feels much better. However, she is now complaining of pain in her right upper leg. She does not voice any other medical complaints or concerns. DW RN, no adverse events noted overnight. Physical Exam Vital signs: Vital Signs 07/10/18 16:00 07/10/18 16:01 07/10/18 19:57 Temperature 97.3 F L Pulse Rate 54 L 76 56 L Respiratory Rate 16 16 24 Blood Pressure 124/57 L Pulse Oximetry 98 93 L 07/10/18 19:59 07/10/18 20:00 07/10/18 23:42 Temperature 98.0 F Pulse Rate 58 L 60 60 Respiratory Rate 18 Blood Pressure 144/63 H Pulse Oximetry 96 07/11/18 00:00 07/11/18 04:18 07/11/18 08:00 Temperature 97.4 F L 97.4 F L 97.1 F L Pulse Rate 63 62 66 Respiratory Rate 18 18 17 Blood Pressure 133/60 134/65 132/60 Pulse Oximetry 95 92 L 97 07/11/18 08:07 Temperature Pulse Rate 60 Respiratory Rate 16 Blood Pressure Pulse Oximetry 94 L Intake & Output 07/10/18 07/11/18 07/11/18 18:59 06:59 18:59 Intake Total 835 / 835 680 / 680 Output Total 400 / 400 500 / 500 Balance 435 / 435 180 / 180 Weight 102 kg Intake: IV 615 / 615 100 / 100 Zosyn 3.375 GM Premix 3.375 gm 100 / 100 100 / 100 In 50 ml @ 100 mls/hr IV.SIG Q6H [facility] Rx#:[id number] Vancomycin Inj 1,500 MG In NS 515 / 515 Inj 500 ML @ 250 mls/hr IV.SIG ONCE ONE Rx#:[id number] Oral 220 / 220 580 / 580 Output: Urine 400 / 400 500 / 500 Other: Date of Last Bowel Movement 07/10/18 # Bowel Movements 2 Narrative: GENERAL: WDWN elderly female patient, INAD. Awake and alert. Patient keeps saying "oww" and holding right upper leg. RN at bedside removed UE restraints. SKIN: Warm and dry. HEENT: Atraumatic. Normocephalic. Pupils equal and round. No scleral icterus. No nasal discharge. Mucous membranes pink and moist. NECK: Trachea midline. CARDIOVASCULAR: Regular rate and rhythm. RESPIRATORY: No accessory muscle use. Clear to auscultation. Breath sounds equal bilaterally. GASTROINTESTINAL: Abdomen soft, non-tender, nondistended. +BS. MUSCULOSKELETAL: Extremities without clubbing, cyanosis, or edema. +area of nearly resolved erythema right anterior tibia, NTTP. No induration noted. + pain with palpation over right hip and upper thigh. +pain elicited with attempted ROM. No evidence of infection. No ecchymosis. Skin intact over area. NEUROLOGICAL: Awake and alert. Oriented to self only. No obvious cranial nerve deficits. Able to move all extremities spontaneously. Normal speech. PSYCHIATRIC: Calm and cooperative. Results Labs CBC & Chem 7: 07/10/18 10:55 07/12/18 07:41 Labs: Microbiology 07/06/18 21:35 Blood - Peripheral Aerobic Blood Culture - Final No growth in 5 days 07/06/18 21:35 Blood - Peripheral Anaerobic Blood Culture - Final No growth in 5 days 07/06/18 21:40 Blood - Peripheral Aerobic Blood Culture - Final No growth in 5 days 07/06/18 21:40 Blood - Peripheral Anaerobic Blood Culture - Final No growth in 5 days Imaging Imaging: Impressions Hip X-Ray 07/11/18 00:00 CONCLUSION: No acute bony abnormalities identified at the right hip. Assessment and Plan Plan 87-year-old female with a history of dementia, gout, hypertension, hyperlipidemia and hypothyroidism was sent to the ER by nursing facility complaints of redness and swelling to the right lower extremity. Cellulitis, right lower extremity, resolved -Doppler ultrasound negative for DVT -Treated with IV Zosyn and Vancomycin. Change to po antibiotic therapy. -Elevate RLE -Pain management with p.o. 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 Signed off. Probable pneumonia, HAP -repeat chest x-ray shows mild infiltrate and small effusion in left lower lung -continue supplemental O2, duoneb scheduled -treated with IV Zosyn -de-escalate to po Augmentin Acute hypoxic respiratory failure, improved -likely secondary to above -wean off oxygen as tolerated Abnormal UA/UTI -urine culture with Enterococcus faecalis and mixed gram positive brendon, probable contaminants -Blood cultures with no growth to date. -completed abx treatment TABITHA on Chronic kidney disease, stage III -creatinine is improving -monitor renal function closely -avoid nephrotoxic meds Hypertension, chronic -continue on home medications and monitor Dementia, chronic -continue on home medications DVT prophylaxis -patient is on Xarelto Code Status: FULL Discussed Condition With: patient, nursing staff, Dr. Londono Discharge Planning: Likely discharge in am Progress Note: Quality VTE Deep Vein Thrombosis/Pulmonary Embolism Present on Admission: No
[2018-07-11] MEDS: Mirtazapine 15 MG Tablet PO SCH (21:00)
[2018-07-11] MEDS: Amoxicillin/Clavulanate 875/125 MG Tablet PO SCH (21:17)
[2018-07-11] MEDS: Gabapentin 300 MG Capsule PO SCH (21:17)
[2018-07-12] MEDS: Acetaminophen 325 MG Tablet PO PRN (01:44)
[2018-07-12] MEDS: Levothyroxine 150 MCG Tablet PO SCH (05:49)
--- NOTE | 2018-07-12 08:19 | P.DCO ---
Diagnosis (1) At high risk for falls: Status: Acute (2) Gait instability: Status: Acute (3) Weakness: Status: Acute (4) Degenerative joint disease (DJD) of hip: Status: Acute Physical Therapy Order: Evaluate and treat, Improve ambulation and Strength and gait training Occupational Therapy Order: Evaluate and treat, Improve ADL, Gross motor coordination and Fine motor coordination Case Management Consult Case Management Consult-Home Health: Yes I have seen patient Jenna De Luna on 07/12/18. My clinical findings support the need for the requested home health care services because: Limited mobility due to disease progression, Patient has SOB, Deconditioned with increased weakness, Medication compliance is questionable, Limited ability to care for self, Impaired cognition/judgement and High risk of falls I certify that my clinical findings support that this patient is homebound because: Post-op weakness, Impaired cognitive ability/safety, Unsteady gait/balance, Unsafe to leave home unassisted, Non-ambulatory: confined to bed or chair, Unable to use public transportation and Poor cardiac reserve
--- NOTE | 2018-07-12 08:28 | P.DS ---
DS: Providers Date of admission: 07/08/18 14:49 Primary care physician: UNKNOWN Consults: 07/07/18 00:08 HUB Only Consult Order Routine Consulting Provider: [facility] 07/07/18 10:15 HUB Only Consult Order Routine Consulting Provider: Nadiya Clifford,Clarisa 07/07/18 12:19 HUB Only Consult Order Routine Consulting Provider: Debi Ignacio,Agency 07/07/18 16:06 Consult to Vascular Surgery Routine Consulting Provider: Abraham Muñoz Preferred Invas Tech:: Abraham Muñoz Reason for Consultation: pt with recent iliac thrombectomy, here for RLE cellulitis. Family requesting consultation. Notified:: Physician Spoke with:: DR. MUÑOZ Date Notified:: 07/07/18 Time Notified:: 16:32 Ordering Provider: JOSEMANUEL Attending physician on discharge: Tru Londono Anticipated date of discharge: 07/12/18 Brief History from admission: 87-year-old female with a history of dementia, gout, hypertension, hyperlipidemia and hypothyroidism was sent to the ER by nursing facility complaints of redness and swelling to the right lower extremity . Patient is demented so ROS is limited, she is only oriented to self. The ER physician reported the halfway after they noticed redness and swelling to her right lower extremity. She did have internal and external iliac thrombectomies on her right leg on 06/13/18. Patient update on day of discharge: Patient seen and examined. Patient denies any complaints of right hip or leg pain this morning. She denies any fever or chills. She denies any chest pain or shortness of breath. She denies any nausea, vomiting or abdominal pain. Discussed with nursing staff, no adverse events noted overnight. DS: Diagnosis Discharge Diagnosis (1) At high risk for falls: Status: Acute (2) Gait instability: Status: Acute (3) Weakness: Status: Acute (4) Degenerative joint disease (DJD) of hip: Status: Acute (5) Cellulitis: Status: Acute (6) Peripheral arterial disease: Status: Acute (7) Pneumonia: Status: Acute DS: Summary Patient was admitted with cellulitis of the right lower extremity. She had recently undergone an thrombectomies on the right lower extremity on 06/13/[address] Muñoz. Patient was started on IV antibiotics. Doppler ultrasound of the right lower extremity was negative for DVT. Patient was seen in consultation by Dr. Muñoz of vascular surgery. Patient developed urinary tract infection and acute kidney injury superimposed on chronic kidney disease. Patient was given gentle IV fluid hydration. Urine culture grew enterococcus faecalis, pansensitive. Patient developed acute hypoxic respiratory failure with O2 sats in the 80s on room air. ABG was obtained which revealed follow-up chest x-ray showed mild infiltrate and small effusion of the left lower lung concerning for likely pneumonia, hospital associated. Adequate O2 saturations were maintained with supplemental oxygen. Due to patient's dementia and episodes of increased confusion, patient pulled out her IV and had to be temporally placed in soft restraints. As a result, patient missed a few doses of her IV antibiotic therapy prolonging her hospital stay. Patient improved clinically. Her kidney function trended towards baseline. Her right lower extremity cellulitis improved significantly. Her antibiotics were de- escalated. Patient was cleared for discharge from vascular surgery standpoint with instructions to follow-up in 2 weeks with an [facility]. Patient reached the maximal benefit of her hospitalization and was discharged back to SNF facility. Time Spent with Patient Total time spent providing and/or coordinating discharge services: Greater than 30 minutes Quality: VTE Deep Vein Thrombosis/Pulmonary Embolism Present on Admission: No Exam Narrative Exam Narrative: GENERAL: WDWN elderly female patient, INAD. Encountered in her bed asleep, easily awakens to voice. She is not in restraints. SKIN: Warm and dry. HEENT: Atraumatic. Normocephalic. Pupils equal and round. No scleral icterus. No nasal discharge. Mucous membranes pink and moist. NECK: Trachea midline. CARDIOVASCULAR: Regular rate and rhythm. RESPIRATORY: No accessory muscle use. Clear to auscultation. Breath sounds equal bilaterally. GASTROINTESTINAL: Abdomen soft, non-tender, nondistended. +BS. MUSCULOSKELETAL: Extremities without clubbing, cyanosis, or edema. +area of nearly resolved erythema right anterior tibia, NTTP. No induration noted. Right hip NTTP. NEUROLOGICAL: Awake and alert. Oriented to self only. No obvious cranial nerve deficits. Able to move all extremities spontaneously. Normal speech. PSYCHIATRIC: Calm and cooperative. Results Impressions ITS Impressions Venous Doppler Study 07/06/18 21:19 CONCLUSION: 1. The study is negative for lower extremity deep venous thrombosis. Chest X-Ray 07/09/18 00:00 CONCLUSION: Mild infiltrate and small effusion in the left lower lung. Hip X-Ray 07/11/18 00:00 CONCLUSION: No acute bony abnormalities identified at the right hip. Discharge Plan Discharge Disposition Patient Disposition: Discharge to SNF Discharge Condition Condition: Stable Discharge Order Discharge Orders: Discharge Order (Routine); Ordered 07/12/18 Ordered By: Portia Estrada Discharge Details Anticipated Discharge Date: 07/12/18 Physicians Team Primary Care Provider: UNKNOWN, Attending Provider: Tru Londono Other Providers: [facility] ; Nadiya Clifford,Agency ; [facility] ; Abraham Muñoz Rxs /Orders / Referrals /Forms Prescriptions: New amoxicillin-pot clavulanate 875-125 mg Tablet 1 tab PO Q12HR 4 Days Qty: 8 RF: 0 Continue hydrocodone-acetaminophen 5-325 mg Tablet 1 tab PO Q8H PRN (Reason: Pain (Scale Score 7-10)) Qty: 9 RF: 0 multivitamin Tablet 1 tab PO DAILY RF: 0 donepezil 5 mg Tablet 1 tab PO HS RF: 0 torsemide 20 mg Tablet 1 tab PO BID RF: 0 atenolol 25 mg Tablet 0.5 tab PO DAILY RF: 0 allopurinol 100 mg Tablet 1 tab PO DAILY RF: 0 mirtazapine 30 mg Tablet 1 tab PO HS RF: 0 levothyroxine 150 mcg Tablet 1 tab PO DAILY RF: 0 gabapentin 300 mg Capsule 1 tab PO HS RF: 0 memantine 28 mg Capsule,Sprinkle,Er 24hr 1 tab PO DAILY RF: 0 cholecalciferol (vitamin D3) [Vitamin D3] 1,000 unit Capsule 1,000 unit PO DAILY RF: 0 potassium chloride 20 mEq Tablet Extended Release 20 meq PO BID RF: 0 ipratropium-albuterol 0.5 mg-3 mg(2.5 mg base)/3 mL Solution For Nebulization 3 ml INHALATION Q6H PRN (Reason: Shortness Of Breath Or Wheezing) RF: 0 cyanocobalamin (vitamin B-12) [Vitamin B-12] 500 mcg Tablet 1,000 mcg PO DAILY RF: 0 albuterol sulfate [Ventolin HFA] 90 mcg/actuation Hfa Aerosol Inhaler 2 puff INHALATION Q6H PRN (Reason: Wheezing) RF: 0 atorvastatin 40 mg Tablet 40 mg PO HS RF: 0 nifedipine [Procardia] 10 mg Capsule 10 mg PO QID RF: 0 rivaroxaban [Xarelto] 15 mg Tablet 15 mg PO BID RF: 0 Discontinued cyanocobalamin (vitamin B-12) [Vitamin B-12] 1,000 mcg Tablet 1,000 mcg PO DAILY RF: 0 Referrals: Primary Care Provider [Outside] - See Instructions ( Please call the physician's office to book the appointment to be seen within two to three days.) Abraham Muñoz MD [Physician] - See Instructions ( Please call the physician 's office to book the appointment to be seen within two weeks. Please contact their office to schedule an appointment.) UNKNOWN, [Primary Care Provider] - See Instructions Discharge Interventions Interventions: Discharge Planning - Case Management Last Done: 07/11/18 15:06 Status ED Status: Left Department
[2018-07-12] MEDS: Atenolol 25 MG Tablet PO SCH (08:59)
[2018-07-12] MEDS: Torsemide 20 MG Tablet PO SCH ×2 (08:59→20:18)
[2018-07-12] MEDS: NIFEdipine 10 MG Capsule PO SCH ×5 (08:59→20:18)
[2018-07-12] MEDS: Rivaroxaban 15 MG Tablet PO SCH ×2 (08:59→20:15)
[2018-07-12] MEDS: Allopurinol 100 MG Tablet PO SCH (08:59)
[2018-07-12] MEDS: Amoxicillin/Clavulanate 875/125 MG Tablet PO SCH ×2 (08:59→20:18)
[2018-07-12 09:26] LABS: Vancomycin,Random 14.1 Comment
--- NOTE | 2018-07-12 16:10 | P.PNIM ---
Subjective Interval history: Patient seen and examined. Patient denies any complaints of right hip or leg pain this morning. She denies any fever or chills. She denies any chest pain or shortness of breath. She denies any nausea, vomiting or abdominal pain. Discussed with nursing staff, no adverse events noted overnight. Physical Exam Vital signs: Vital Signs 07/11/18 20:00 07/12/18 00:00 07/12/18 01:48 Temperature 98.0 F 97.9 F Pulse Rate 60 65 Respiratory Rate 17 20 16 Blood Pressure 123/56 L 127/61 Pulse Oximetry 92 L 94 L 07/12/18 04:00 07/12/18 04:48 07/12/18 08:00 Temperature 97.2 F L 97.1 F L Pulse Rate 60 54 L 49 L Respiratory Rate 16 16 Blood Pressure 112/56 L 125/57 L Pulse Oximetry 96 95 07/12/18 09:24 07/12/18 11:52 07/12/18 12:00 Temperature 98.1 F Pulse Rate 54 L 53 L 55 L Respiratory Rate 16 16 16 Blood Pressure 129/62 Pulse Oximetry 97 95 Intake & Output 07/11/18 07/12/18 07/12/18 18:59 06:59 18:59 Intake Total 300 / 300 580 / 580 Output Total 600 / 600 1400 / 1400 Balance -300 / -300 -820 / -820 Weight 102 kg Intake: Oral 300 / 300 580 / 580 Output: Urine 600 / 600 1400 / 1400 Other: Date of Last Bowel Movement 07/12/18 07/12/18 # Bowel Movements 1 3 # Incontinent Bowel Movements 1 Narrative: GENERAL: WDWN elderly female patient, INAD. Encountered in her bed asleep, easily awakens to voice. She is not in restraints. SKIN: Warm and dry. HEENT: Atraumatic. Normocephalic. Pupils equal and round. No scleral icterus. No nasal discharge. Mucous membranes pink and moist. NECK: Trachea midline. CARDIOVASCULAR: Regular rate and rhythm. RESPIRATORY: No accessory muscle use. Clear to auscultation. Breath sounds equal bilaterally. GASTROINTESTINAL: Abdomen soft, non-tender, nondistended. +BS. MUSCULOSKELETAL: Extremities without clubbing, cyanosis, or edema. +area of nearly resolved erythema right anterior tibia, NTTP. No induration noted. Right hip NTTP. NEUROLOGICAL: Awake and alert. Oriented to self only. No obvious cranial nerve deficits. Able to move all extremities spontaneously. Normal speech. PSYCHIATRIC: Calm and cooperative. Results Labs CBC & Chem 7: 07/10/18 10:55 07/12/18 07:41 Assessment and Plan (1) At high risk for falls: Code(s): Z91.81 - History of falling Status: Acute (2) Gait instability: Code(s): R26.81 - Unsteadiness on feet Status: Acute (3) Weakness: Code(s): R53.1 - Weakness Status: Acute (4) Degenerative joint disease (DJD) of hip: Code(s): M16.9 - Osteoarthritis of hip, unspecified Status: Acute (5) Cellulitis: Code(s): L03.90 - Cellulitis, unspecified Status: Acute (6) Peripheral arterial disease: Code(s): I73.9 - Peripheral vascular disease, unspecified Status: Acute (7) Pneumonia: Code(s): J18.9 - Pneumonia, unspecified organism Status: Acute Plan 87-year-old female with a history of dementia, gout, hypertension, hyperlipidemia and hypothyroidism was sent to the ER by nursing facility complaints of redness and swelling to the right lower extremity. Cellulitis, right lower extremity, resolved -Doppler ultrasound negative for DVT -Treated with IV Zosyn and Vancomycin. Changed to po antibiotic therapy to complete treatment. -Elevate RLE -Pain management with p.o. 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 Signed off. Patient to follow-up as outpatient in 2 weeks. Probable pneumonia, HAP, resolving -repeat chest x-ray shows mild infiltrate and small effusion in left lower lung -continue supplemental O2, duoneb scheduled -treated with IV Zosyn, now on po antibiotics Acute hypoxic respiratory failure, improved -likely secondary to above -wean off oxygen as tolerated Abnormal UA/UTI -urine culture with Enterococcus faecalis and mixed gram positive brendon, probable contaminants -Blood cultures with no growth to date. -completed abx treatment TABITHA on Chronic kidney disease, stage III -creatinine is improving -monitor renal function closely -avoid nephrotoxic meds Hypertension, chronic -continue on home medications and monitor Dementia, chronic -continue on home medications DVT prophylaxis -patient is on Xarelto Code Status: FULL Discussed Condition With: patient, nursing staff, Dr. Londono Discharge Planning: Patient may be discharged to snf facility once accepted Progress Note: Quality VTE Deep Vein Thrombosis/Pulmonary Embolism Present on Admission: No
[2018-07-12] MEDS: Gabapentin 300 MG Capsule PO SCH (20:18)
[2018-07-12] MEDS: Mirtazapine 15 MG Tablet PO SCH (20:19)
[2018-07-13 05:36] LABS: Baso % (Auto) 0.8 % (0.0-2.0); Eos # (Auto) 0.4 th/mm3 (0.0-0.4); Hemoglobin 9.8 gm/dL (11.6-15.3); Lymph # (Auto) 0.8 th/mm3 (1.0-4.8); Lymph % (Auto) 13.5 % (9.0-44.0); Mean Corpuscular HGB Conc 33.9 % (32.0-36.0); Mean Corpuscular Hemoglobin 30.2 pg (27.0-34.0); Mean Corpuscular Volume 89.1 fL (80.0-100.0); Mono # (Auto) 0.5 th/mm3 (0.0-0.9); Mono % (Auto) 7.7 % (0.0-8.0); Neut # (Auto) 4.4 th/mm3 (1.8-7.7); Platelet Count 138 th/mm3 (150-450); Red Blood Count 3.25 mil/mm3 (4.00-5.30); Red Cell Distribution Width 17.8 % (11.6-17.2); White Blood Count 6.3 th/mm3 (4.0-11.0)
[2018-07-13 05:47] LABS: Calcium 8.6 mg/dL (8.5-10.1); Carbon Dioxide 30.5 meq/L (21.0-32.0); Magnesium 2.1 mg/dL (1.5-2.5); Potassium 3.8 meq/L (3.5-5.1)
[2018-07-13] MEDS: Levothyroxine 150 MCG Tablet PO SCH (05:55)
--- NOTE | 2018-07-13 07:31 | P.PNADD ---
Addendum to Inpatient Note Reason for Addendum: Additional Documentation (Attending note: I reviewed the below documentation. - Abraham Bazan) Additional information: S: Romulot called at 0700. Nursing staff reports that the patient had become bradycardic overnight to the 30's and 40's. The rn rehabilitation physician was notified and a stat EKG, CBC and BMP were ordered at 0530. She continued to be bradycardic to the upper 20's and 30's so a Halicat was called. At baseline, she has dementia and can be slow to respond. She did endorse some chest discomfort when prompted earlier in the night. She has a known history of Afib and received her daily dose of Atenolol the day prior and her nighttime dose of Procardia at 8 PM the night before. Otherwise no known cardiac history per nursing staff. O: VS: T 98.0, BP 112/51, HR 30-40, RR 14-16, O2 sat 99% Gen: Elderly female laying in bed comfortably in NAD. Sleepy but arousable. Answered questions appropriately CV: Warm and well perfused. Bradycardic to the 30's. Irregular. No murmurs appreciated Resp: CTAB with no wheezes Abd: Nondistended, soft A/P: 87 yo F with known history of Afib seen due to sustained bradycardia. Ddx: AV block, NM, sick sinus syndrome, medication induced bradycardia -EKG from 5:30 showed low voltage, questionable R block. Read as afib w/ questionably old ant infarct. -court monitor at bedside showed low voltage, possible AV block -VS otherwise stable, patient arousable and answers questions appropriately -Hold Atenolol, procardia -Denied any current chest pain -Ordering TSH w/ Free T4, Troponin, repeat stat EKG -Attending physician notified - requested transfer to level of care where she can receive continuous monitoring
--- NOTE | 2018-07-13 08:55 | P.PNIM ---
Subjective Interval history: Patient is laying down in bed. She is not in any acute distress. No chest pain. No palpitations. Physical Exam Vital signs: Vital Signs 07/12/18 09:24 07/12/18 11:52 07/12/18 12:00 Temperature 98.1 F Pulse Rate 54 L 53 L 55 L Respiratory Rate 16 16 16 Blood Pressure 129/62 Pulse Oximetry 97 95 07/12/18 16:00 07/12/18 20:00 07/12/18 21:01 Temperature 98.0 F 98.3 F Pulse Rate 61 43 L 53 L Respiratory Rate 16 20 14 Blood Pressure 129/58 L 107/48 L Pulse Oximetry 92 L 96 95 07/13/18 00:00 07/13/18 01:53 07/13/18 04:00 Temperature 97.9 F 97.8 F 97.9 F Pulse Rate 64 43 L 46 L Respiratory Rate 18 16 20 Blood Pressure 114/54 L 114/59 L 104/61 Pulse Oximetry 92 L 91 L 96 Intake & Output 07/12/18 07/13/18 07/13/18 18:59 06:59 18:59 Intake Total 1200 / 1200 720 / 720 Output Total 1999 Balance -800 / -800 720 / 720 Intake: Oral 1200 / 1200 720 / 720 Output: Urine 1999 Other: # Voids 1 Date of Last Bowel Movement 07/12/18 07/12/18 07/12/18 # Bowel Movements 2 Narrative: Patient laying down in bed. In no acute distress. No complaints from the patient. S1S2, bradycardic CTA b/l Abd soft,nontender, nondistended, bowel sounds are present. No edema of the exts. No focal neuro deficits, moves all 4 exts, sensation intact b/l Results Labs CBC & Chem 7: 07/13/18 05:18 07/14/18 05:23 Assessment and Plan (1) At high risk for falls: Code(s): Z91.81 - History of falling Status: Acute (2) Gait instability: Code(s): R26.81 - Unsteadiness on feet Status: Acute (3) Weakness: Code(s): R53.1 - Weakness Status: Acute (4) Degenerative joint disease (DJD) of hip: Code(s): M16.9 - Osteoarthritis of hip, unspecified Status: Acute (5) Cellulitis: Code(s): L03.90 - Cellulitis, unspecified Status: Acute (6) Peripheral arterial disease: Code(s): I73.9 - Peripheral vascular disease, unspecified Status: Acute (7) Pneumonia: Code(s): J18.9 - Pneumonia, unspecified organism Status: Acute Plan This patient is an 87 y/o F with a dx of Dementia, gout, HTN, DLD, and Hypothyroidism. Patient was recently admitted to the hospital and underwent iliac thrombectomy on 06/13/18 under the care of Vascular surgery. She was admitted again for right lower ext cellulitis. 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 A fib I was called by the [facility] nurse this morning to evaluate the patient for Telemetry showing a Heart rate in the low 30s. EKG appears to show an av block. I will discuss the EKG with cardiology. Patient was asymptomatic during the episodes. I asked for the patient to be transferred to [facility] for closer evaluation and possible need for Atropine. Cardiology was consulted, I will follow up with their recs. Cardiac enzymes and troponins ordered. Monitor closely on telemetry. Patient is on a betablocker which was held. Donepezil also held which can cause AV block. She has a hx of atrial fibrillation as well as lower ext clots s/p thrombectomy and is currently on Xarelto. 3. Right lower ext cellulitis U/s of the lower ext negative for DVT S/p tx with vanco and zosyn On PO antibiotics. 4. Recent right Iliac thrombectomy Continue xarelto Vasc surgery evaluated pt, signed off. Pt will follow up outpt in two weeks with vasc surg after discharge. 5. Acute hypoxic resp failure 2/2 HAPNA S/P antibiotics Weaned off of oxygen. 6. UTI Cx grew enterococcus faecalis Blood cxs negative Completed tx 7. TABITHA on CKD stage III Cr stable over the past few days Avoid nephrotoxic agents. 8. HTN Continue current meds Monitor bp, adjust meds as needed. Atenolol stopped due to bradycardia. 9. Dementia Chronic, donepezil held, can cause AV block. DVT prophylaxis, pt is on Xarelto. Progress Note: Quality VTE Deep Vein Thrombosis/Pulmonary Embolism Present on Admission: No
[2018-07-13] MEDS: Allopurinol 100 MG Tablet PO SCH (09:26)
[2018-07-13] MEDS: Amoxicillin/Clavulanate 875/125 MG Tablet PO SCH ×2 (09:27→20:04)
[2018-07-13] MEDS: Torsemide 20 MG Tablet PO SCH ×2 (09:27→20:04)
[2018-07-13] MEDS: Rivaroxaban 15 MG Tablet PO SCH ×2 (09:27→20:04)
[2018-07-13 11:56] LABS: Troponin I 0.03 ng/mL (0.02-0.05)
[2018-07-13 12:24] LABS: Free T4 (Free Thyroxine) 0.94 ng/dL (0.76-1.46); Thyroid Stimulating Hormone 30.8 uIU/mL (0.358-3.740)
[2018-07-13] MEDS ORDERED: DOPamine 800 MG/500 ML Premix 800 MG/500 ML PLAST..BAG IV.CONT ONE (15:42)
[2018-07-13] MEDS ORDERED: Atropine Inj 1 MG/10 ML Syringe IV.PUSH ONE (15:42)
--- NOTE | 2018-07-13 16:34 | MB ---
cc: Ken Parra MD DATE: 07/13/2018 REASON FOR CONSULTATION: Evaluation for bradycardia. HISTORY OF PRESENT ILLNESS: This is an 87-year-old woman with a history of dementia, admitted to the hospital with redness and swelling to her right lower extremity and diagnosed with cellulitis. I was called because she had some asymptomatic severe bradycardia. I have looked at her strips that did demonstrate Wenckebach AV block, occasionally she will have a pause when she does not conduct but I did not see any third-degree block: She does have some intermittent 2:1 block with rates that get quite slow. There are no symptoms that we can elicit from the bradycardia. She is on atenolol and one other agent that can cause bradycardia and those have been stopped. I could not elicit any complaints at all from the patient. PAST MEDICAL HISTORY: Medical history includes Alzheimer's, depression, gout, hypertension, hyperlipidemia, hypothyroidism, polyneuropathy, thrombocytopenia, paroxysmal atrial fibrillation, previous DVT. FAMILY HISTORY: Positive for hypertension. SOCIAL HISTORY: Former smoker, but does not smoke now. ALLERGIES: NONE KNOWN. CURRENT MEDICATIONS: List is charted and includes donepezil and atenolol, which have been stopped. PHYSICAL EXAMINATION: GENERAL: Reveals an elderly white female. She is in no distress. VITAL SIGNS: Charted at the present time, her heart rate is in the 50s. HEENT: Unremarkable. NECK: No JVD or bruits. LUNGS: Clear anteriorly. CARDIAC: S1, S2, mildly bradycardic, regular rhythm. ABDOMEN: Soft. EXTREMITIES: No clubbing, cyanosis or edema. Her EKG shows strikingly low voltage, but I think they are consistent with Wenckebach as are her rhythm strips. LABORATORY DATA: Charted. Hematocrit is 29. Her creatinine is 1.55. Troponins are negative. TSH is severely elevated at 30.8 with a free T4 0.94. 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 She does not appear to be symptomatic. I do not see evidence for third-degree block. I do not recommend a pacemaker at this time. I agree with stopping the atenolol and donepezil. She may be hypothyroid with a TSH of 30.8. Maybe that needs to be adjusted upward. Thank you very much for asking me to see her. Ken Parra MD VEAmos/ct , 03:54 PM , 04:01 PM
--- NOTE | 2018-07-13 17:04 | ECG ---
Date Performed: 07/13/2018 Time Performed: 07:23:20 PTAGE: 87 years EKG: Sinus rhythm WITH SUSPECTED WENKEBACH AV BLOCK LOW LIMB LEAD VOLTAGE POOR R WAVE PROGRESSION POSSIBLE ANTERIOR MY OCARDIAL INFARCTION , PROBABLY OLD ABNORMAL ECG PREVIOUS TRACING : 02/15/2018 12.58 DOCTOR: Ken Parra Interpretating Date/Time 07/13/2018 17:03:24
--- NOTE | 2018-07-13 17:04 | ECG ---
Date Performed: 07/13/2018 Time Performed: 05:30:22 PTAGE: 87 years EKG: Sinus rhythm WITH SUSPECTED WENKEBACH AV BLOCK LOW LIMB LEAD VOLTAGE POOR R WAVE PROGRESSION POSSIBLE ANTERIOR MY OCARDIAL INFARCTION , PROBABLY OLD ABNORMAL ECG NO PREVIOUS TRACING DOCTOR: Ken Parra Interpretating Date/Time 07/13/2018 17:03:47
[2018-07-13] MEDS: Gabapentin 300 MG Capsule PO SCH (20:04)
[2018-07-13] MEDS: Mirtazapine 15 MG Tablet PO SCH (20:04)
[2018-07-14] MEDS ORDERED: Chlorhexidine Gluconate 2% 1 Pack (2 Cloths) TOPICAL PRN (04:00)
[2018-07-14] MEDS: Chlorhexidine Gluconate 2% 1 Pack (2 Cloths) TOPICAL SCH (04:25)
[2018-07-14 06:01] LABS: Calcium 9.2 mg/dL (8.5-10.1); Carbon Dioxide 29.7 meq/L (21.0-32.0); Magnesium 2.3 mg/dL (1.5-2.5); Potassium 3.4 meq/L (3.5-5.1)
[2018-07-14] MEDS: Levothyroxine 150 MCG Tablet PO SCH (06:24)
--- NOTE | 2018-07-14 10:26 | P.PNCA ---
Subjective Interval history: No complaints Medications and Allergies Active Medications: Active Medications Acetaminophen (Tylenol) 650 mg PO Q4H PRN PRN Reason: Temp > 100.4 Last Admin: 07/12/18 01:44 Dose: 650 mg Hydrocodone Bitart/Acetaminophen (Lyle 5/325) 1 tab PO Q8H PRN PRN Reason: Pain (Scale Score 7-10) Last Admin: 07/13/18 04:15 Dose: 1 tab Al Hydroxide/Mg Hydroxide (Milk Of Magnesia Liq) 30 ml PO Q12H PRN PRN Reason: Mild Constipation Allopurinol (Zyloprim) 100 mg PO DAILY [facility] Last Admin: 07/13/18 09:26 Dose: 100 mg Amoxicillin/Clavulanate Potassium (Augmentin 875/125 Mg) 1 tab PO Q12HR [facility] Last Admin: 07/13/18 20:04 Dose: 1 tab Atenolol (Tenormin) 12.5 mg PO DAILY [facility] Last Admin: 07/12/18 08:59 Dose: 12.5 mg Atorvastatin Calcium (Lipitor) 40 mg PO [facility] Last Admin: 07/13/18 20:04 Dose: 40 mg Bisacodyl (Dulcolax Supp) 10 mg RECTAL DAILY PRN PRN Reason: SEVERE CONSITIPATION Chlorhexidine Gluconate (Chlorhexidine 2% Cloth) 3 pack TOPICAL DAILY@0400 [facility] Stop: 07/19/18 03:59 Last Admin: 07/14/18 04:25 Dose: 3 pack Chlorhexidine Gluconate (Chlorhexidine 2% Cloth) 3 pack TOPICAL DAILY@0400 PRN PRN Reason: Extra cloth needed Stop: 07/19/18 03:59 Donepezil HCl (Aricept) 5 mg PO [facility] Last Admin: 07/12/18 20:19 Dose: 5 mg Gabapentin (Neurontin) 300 mg PO [facility] Last Admin: 07/13/18 20:04 Dose: 300 mg Lactulose (Lactulose Liq) 30 ml PO DAILY PRN PRN Reason: SEVERE CONSITIPATION Levothyroxine Sodium (Synthroid) 150 mcg PO DAILY@0600 [facility] Last Admin: 07/14/18 06:24 Dose: 150 mcg Memantine (Namenda) 10 mg PO BID [facility] Last Admin: 07/13/18 20:04 Dose: 10 mg Mirtazapine (Remeron) 30 mg PO [facility] Last Admin: 07/13/18 20:04 Dose: 30 mg Miscellaneous (Pill Splitter) 1 each OTHER PRN PRN PRN Reason: SEE LABEL COMMENTS Nifedipine (Procardia) 10 mg PO QID [facility] Last Admin: 07/12/18 20:18 Dose: 10 mg Ondansetron HCl (Zofran Inj) 4 mg IV.PUSH Q6H PRN PRN Reason: NAUSEA OR VOMITING Potassium Chloride (K-Dur) 20 meq PO BID [facility] Last Admin: 07/13/18 20:04 Dose: 20 meq Rivaroxaban (Xarelto) 15 mg PO BID [facility] Last Admin: 07/13/18 20:04 Dose: 15 mg Sennosides (Senokot) 17.2 mg PO Q12H PRN PRN Reason: Moderate Constipation Sodium Chloride (Ns Flush) 2 ml IV.FLUSH BID [facility] Last Admin: 07/13/18 20:03 Dose: 2 ml Sodium Chloride (Ns Flush) 2 ml IV.FLUSH PRN PRN PRN Reason: FLUSH AFTER USING IV ACCESS Torsemide (Demadex) 20 mg PO BID [facility] Last Admin: 07/13/18 20:04 Dose: 20 mg Allergies Allergy/AdvReac Type Severity Reaction Status Date / Time No Known Allergies Allergy Verified 07/06/18 21:12 Home Medications Medication Instructions Recorded Confirmed Type allopurinol 1 tab PO DAILY 05/23/18 07/07/18 History atenolol 0.5 tab PO DAILY 05/23/18 07/07/18 History donepezil 1 tab PO HS 05/23/18 07/07/18 History gabapentin 1 tab PO HS 05/23/18 07/07/18 History levothyroxine 1 tab PO DAILY 05/23/18 07/07/18 History memantine 1 tab PO DAILY 05/23/18 07/07/18 History mirtazapine 1 tab PO HS 05/23/18 07/07/18 History multivitamin 1 tab PO DAILY 05/23/18 07/07/18 History torsemide 1 tab PO BID 05/23/18 07/07/18 History albuterol sulfate [Ventolin HFA] 2 puff INHALATION Q6H PRN 06/12/18 07/07/18 History cholecalciferol (vitamin D3) 1,000 unit PO DAILY 06/12/18 07/07/18 History [Vitamin D3] cyanocobalamin (vitamin B-12) 1,000 mcg PO DAILY 06/12/18 07/07/18 History [Vitamin B-12] ipratropium-albuterol 3 ml INHALATION Q6H PRN 06/12/18 07/07/18 History potassium chloride 20 meq PO BID 06/12/18 07/07/18 History Physical Exam Vital signs: Vital Signs 07/13/18 11:00 07/13/18 11:06 07/13/18 11:31 Temperature Pulse Rate 52 L 41 L 52 L Respiratory Rate 36 H 22 23 Blood Pressure 121/53 L 111/82 Pulse Oximetry 07/13/18 12:00 07/13/18 12:47 07/13/18 13:00 Temperature 98.0 F Pulse Rate 52 L 57 L 42 L Respiratory Rate 22 25 H 32 H Blood Pressure 111/82 124/67 Pulse Oximetry 95 92 L 07/13/18 13:08 07/13/18 14:00 07/13/18 14:16 Temperature Pulse Rate 54 L 49 L 56 L Respiratory Rate 32 H 33 H 24 Blood Pressure 129/59 L 126/51 L Pulse Oximetry 92 L 93 L 93 L 07/13/18 15:00 07/13/18 16:00 07/13/18 16:01 Temperature 98.2 F Pulse Rate 66 56 L 56 L Respiratory Rate 34 H 27 H 31 H Blood Pressure 129/56 L Pulse Oximetry 93 L 92 L 92 L 07/13/18 17:00 07/13/18 17:08 07/13/18 18:00 Temperature Pulse Rate 60 59 L 58 L Respiratory Rate 39 H 40 H 36 H Blood Pressure 110/67 Pulse Oximetry 92 L 93 L 92 L 07/13/18 19:00 07/13/18 19:16 07/13/18 20:00 Temperature 97.6 F Pulse Rate 66 51 L 65 Respiratory Rate 28 H 26 H 39 H Blood Pressure 136/57 L Pulse Oximetry 92 L 89 L 89 L 07/13/18 20:09 07/13/18 21:00 07/13/18 21:35 Temperature Pulse Rate 58 L 74 103 H Respiratory Rate 26 H 37 H 27 H Blood Pressure 155/63 H 149/99 H Pulse Oximetry 91 L 87 L 90 L 07/13/18 22:00 07/13/18 22:06 07/13/18 22:19 Temperature Pulse Rate 52 L 57 L 68 Respiratory Rate 27 H 26 H 28 H Blood Pressure 138/72 Pulse Oximetry 90 L 92 L 89 L 07/13/18 23:00 07/13/18 23:01 07/14/18 00:00 Temperature 97.6 F Pulse Rate 59 L 59 L 42 L Respiratory Rate 24 24 29 H Blood Pressure 138/89 Pulse Oximetry 87 L 88 L 91 L 07/14/18 00:02 07/14/18 01:00 07/14/18 01:01 Temperature Pulse Rate 62 56 L 52 L Respiratory Rate 29 H 23 22 Blood Pressure 126/56 L 130/60 Pulse Oximetry 90 L 90 L 90 L 07/14/18 02:00 07/14/18 02:03 07/14/18 03:00 Temperature Pulse Rate 56 L 59 L 52 L Respiratory Rate 37 H 27 H 23 Blood Pressure 103/74 Pulse Oximetry 89 L 89 L 85 L 07/14/18 03:08 07/14/18 04:00 07/14/18 04:01 Temperature 97.6 F Pulse Rate 59 L 48 L 46 L Respiratory Rate 22 19 20 Blood Pressure 125/56 L 131/61 Pulse Oximetry 96 97 07/14/18 05:00 07/14/18 05:01 07/14/18 06:00 Temperature Pulse Rate 51 L 35 L 57 L Respiratory Rate 28 H 29 H 24 Blood Pressure 163/66 H Pulse Oximetry 94 L 95 95 07/14/18 06:01 07/14/18 07:00 07/14/18 07:01 Temperature Pulse Rate 54 L 34 L 37 L Respiratory Rate 25 H 16 16 Blood Pressure 142/67 H 120/57 L Pulse Oximetry 94 L 94 L 94 L Intake & Output 07/13/18 07/14/18 07/14/18 18:59 06:59 18:59 Intake Total 200 / 200 480 / 480 Output Total 900 / 900 Balance 200 / 200 -420 / -420 Weight 102 kg Intake: Oral 200 / 200 480 / 480 Output: Urine 900 / 900 Other: # Voids 5 Date of Last Bowel Movement 07/12/18 07/12/18 # Bowel Movements 3 0 Narrative: Alert Neuro: couldn't tell me she was in the hospital. Couldn't tell me name of her 2 daughters. Couldn't tell me where she grew up. Spoke to daughter Talya Devries. She told me patient was clear she souldn't want life extended with a pacemaker Chest clear anteriorly CV: profound bradycardia - > 2 second pause. HR into 30's, occas upper 20's Abd soft No edema Results 07/13/18 05:18 07/14/18 05:23 Cardiac Enzymes 07/13/18 07/13/18 Range/Units 11:06 11:06 Troponin I 0.03 0.03 (0.02-0.05) ng/mL CBC 07/13/18 Range/Units 05:18 WBC 6.3 (4.0-11.0) th/mm3 RBC 3.25 L (4.00-5.30) mil/mm3 Hgb 9.8 L (11.6-15.3) gm/dL Hct 29.0 L (35.0-46.0) % Plt Count 138 L (150-450) th/mm3 Neut # (Auto) 4.4 (1.8-7.7) th/mm3 Lymph # (Auto) 0.8 L (1.0-4.8) th/mm3 [place] # (Auto) 0.5 (0.0-0.9) th/mm3 Eos # (Auto) 0.4 (0.0-0.4) th/mm3 Baso # (Auto) 0.0 (0.0-0.2) th/mm3 Comprehensive Metabolic Panel 07/13/18 07/14/18 Range/Units 05:18 05:23 Sodium 140 140 (136-145) meq/L Potassium 3.8 3.4 L (3.5-5.1) meq/L Chloride 103 101 (98-107) meq/L Carbon Dioxide 30.5 29.7 (21.0-32.0) meq/L BUN 20 H 20 H (7-18) mg/dL Creatinine 1.55 H 1.54 H (0.50-1.00) mg/dL Calcium 8.6 9.2 (8.5-10.1) mg/dL Intake and Output 07/13/18 07/14/18 07/14/18 22:59 06:59 14:59 Intake Total 200 / 200 480 / 480 Output Total 900 / 900 Balance 200 / 200 -420 / -420 Intake: Oral 200 / 200 480 / 480 Output: Urine 900 / 900 Other: # Voids 5 Date of Last Bowel Movement 07/12/18 07/12/18 # Bowel Movements 3 0 Weight 102 kg Assessment and Plan - Assessment (1) Bradycardia Code(s): R00.1 - Bradycardia, unspecified Status: Acute Plan: After speaking to patient no pacemaker - patient has very poor QOL and is DNR and does not want life extended. I will F/U prn
[2018-07-14] MEDS: Amoxicillin/Clavulanate 875/125 MG Tablet PO SCH ×2 (10:30→20:36)
[2018-07-14] MEDS: Rivaroxaban 15 MG Tablet PO SCH ×2 (10:30→20:36)
[2018-07-14] MEDS: Torsemide 20 MG Tablet PO SCH ×2 (10:30→22:10)
[2018-07-14] MEDS: Allopurinol 100 MG Tablet PO SCH (10:31)
--- NOTE | 2018-07-14 14:56 | P.CONPAL ---
Consult Service: Palliative Care Requesting Physician: Monisha Neumann Reason for Consult: a. To assist with evaluation and management of symptoms including: pain b. To assist medical decision maker(s) with: better understanding of current medical conditions; weighing benefits/burdens of medical treatment options; making medical treatment decisions. Primary Care Provider: UNKNOWN History of Present Illness History of Present Illness: This patient presented to the ED 07/06/18, from nursing facility, for possible DVT. She has known history of dementia. 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 As well as A. fib, and history of DVTs. EMS reports nursing facility employees indicated she had redness and swelling right lower leg onset the day before. Patient expresses discomfort from all physical exam touch though when asked about if her leg hurts she said no. Denied chest pain, shortness of breath or abdominal pain. She cannot provide other history. Positive swelling, redness right leg. * In the ED CXR with mild cardiomegaly, tiny left pleural effusion. Venous Doppler study negative for lower extremity DVT. Started on IV antibiotics PRN [place] for pain. Admitted for further evaluation and management. * 07/08 vascular surgery was consulted :1. 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 Right lower extremity is viable with no evidence of acute limb ischemia or compartment syndrome.Numbness that involved the right foot and right calf could be related to the initial ischemic insult.2. Ecchymosis and cellulitis involving the right lower extremity This could be related to trauma to the right lower extremity.Patient is currently improving with antibiotics. * Patient is confused requiring mitten restraints. O2 sats fluctuate to the 80s , CXR concerning for pneumonia. Vascular surgery indicates no vascular intervention required * 07/11- 07/12 patient stable leg improving. Discharge planning for possible back to facility the following morning. Vascular surgery has signed off. However she has no complaints of pain in the right upper leg. * 07/13 [facility] emergency alert called at 0700. Patient with some bradycardia overnight 30s-40s. Later continued to have bradycardia 20s-30s. Known history of A. fib had received scheduled dose of atenolol, Procardia night before.cardiac monitor at bedside showed low voltage, possible AV block * 07/14- still with episodes bradycardia. painful overnight, requiring PRN, so reported more lethargic today. HR increased with stimuli. Cardiology notes : " After speaking to patient no pacemaker - patient has very poor QOL and is DNR and does not want life extended. I will F/U prn" . * Palliative care consulted by medical attending to assist with further clarification of goals of medical treatment Patient seen in room no visitors present. She is initially sleeping with eyes closed though arouses easily to verbal. She responds to her name however she appears quite confused. She does not follow my commands consistently. When asked questions she replies with "what time is it", when I tell her what time it is she continues to ask me what time is it. She does not appear to be painful or in distress. She does not appear short of breath, note 4L NC O2 present. Of note heart rate 30s upon my entry while patient sleeping, though upon stimuli up to the 70s. Function/Cognitive Trajectory: most recently skilled at [facility] following hospitalization in May. Prior to that she was in [facility] section at [facility]. She had only been at the [facility] section a few weeks. Prior to that lived at home with her daughter, though essentially required full assist for all ADLs due to cognitive. She was still ambulatory short distances with a walker however cognitively needed reminding and prompting to eat, grooming, toilet etc. Daughter was no longer able to care for her in the home setting, also indicates [facility] was probably not meeting her needs and had recently planned to transition to long-term care. [facility] - History History Provided By: Medical Record - Medical History Medical History: Medical History (Last Reviewed 07/15/18 @ 09:10 by Kiana Guallpa) Cellulitis (Acute) Peripheral arterial disease (Acute) Alzheimer disease Depressive disorder Gout HTN (hypertension) Hyperchloremia Hypothyroidism Polyneuropathy Surgical history unknown Thrombocytopenia Atrial fibrillation DVT (deep venous thrombosis) Dementia - Surgical History Surgical History: Surgical History (Last Updated 07/14/18 @ 16:19 by UMER Rashid) Hx of appendectomy Hx of cholecystectomy - Family History Family History: Family History (Last Reviewed 07/14/18 @ 16:15 by UMER Rashid) Other HTN (hypertension) - Social History I have reviewed the patient's Social History: Yes - Tobacco History Second Hand Smoke Exposure: No Tobacco Use In Past 30 Days: No Smoking Status: Former smoker Tobacco Type: Cigarettes - Alcohol History How Often Do You Have a Drink Containing Alcohol: Never - Substance Use History Substance History: No History of Abuse - Travel History Recent Travel in the [place] Within the Last 8 Weeks: No Recent Travel Out of the Country Within the Last 8 Weeks: No - Immunization History Tetanus Immunization: Unsure Hx Influenza Vaccine This Season: Unable to Assess Medications and Allergies Active Medications: Active Medications Acetaminophen (Tylenol) 650 mg PO Q4H PRN PRN Reason: Temp > 100.4 Last Admin: 07/12/18 01:44 Dose: 650 mg Hydrocodone Bitart/Acetaminophen ([place] 5/325) 1 tab PO Q8H PRN PRN Reason: Pain (Scale Score 7-10) Last Admin: 07/14/18 10:43 Dose: 1 tab Al Hydroxide/Mg Hydroxide (Milk Of Magnesia Liq) 30 ml PO Q12H PRN PRN Reason: Mild Constipation Allopurinol (Zyloprim) 100 mg PO DAILY [facility] Last Admin: 07/14/18 10:31 Dose: 100 mg Amoxicillin/Clavulanate Potassium (Augmentin 875/125 Mg) 1 tab PO Q12HR [facility] Last Admin: 07/14/18 10:30 Dose: 1 tab Atenolol (Tenormin) 12.5 mg PO DAILY [facility] Last Admin: 07/12/18 08:59 Dose: 12.5 mg Atorvastatin Calcium (Lipitor) 40 mg PO [facility] Last Admin: 07/13/18 20:04 Dose: 40 mg Bisacodyl (Dulcolax Supp) 10 mg RECTAL DAILY PRN PRN Reason: SEVERE CONSITIPATION Chlorhexidine Gluconate (Chlorhexidine 2% Cloth) 3 pack TOPICAL DAILY@0400 [facility] Stop: 07/19/18 03:59 Last Admin: 07/14/18 04:25 Dose: 3 pack Chlorhexidine Gluconate (Chlorhexidine 2% Cloth) 3 pack TOPICAL DAILY@0400 PRN PRN Reason: Extra cloth needed Stop: 07/19/18 03:59 Donepezil HCl (Aricept) 5 mg PO [facility] Last Admin: 07/12/18 20:19 Dose: 5 mg Gabapentin (Neurontin) 300 mg PO [facility] Last Admin: 07/13/18 20:04 Dose: 300 mg Lactulose (Lactulose Liq) 30 ml PO DAILY PRN PRN Reason: SEVERE CONSITIPATION Levothyroxine Sodium (Synthroid) 150 mcg PO DAILY@0600 [facility] Last Admin: 07/14/18 06:24 Dose: 150 mcg Memantine (Namenda) 10 mg PO BID [facility] Last Admin: 07/14/18 10:31 Dose: 10 mg Mirtazapine (Remeron) 30 mg PO HS [facility] Last Admin: 07/13/18 20:04 Dose: 30 mg Miscellaneous (Pill Splitter) 1 each OTHER PRN PRN PRN Reason: SEE LABEL COMMENTS Nifedipine (Procardia) 10 mg PO QID [facility] Last Admin: 07/12/18 20:18 Dose: 10 mg Ondansetron HCl (Zofran Inj) 4 mg IV.PUSH Q6H PRN PRN Reason: NAUSEA OR VOMITING Potassium Chloride (K-Dur) 20 meq PO BID [facility] Last Admin: 07/14/18 10:30 Dose: 20 meq Rivaroxaban (Xarelto) 15 mg PO BID [facility] Last Admin: 07/14/18 10:30 Dose: 15 mg Sennosides (Senokot) 17.2 mg PO Q12H PRN PRN Reason: Moderate Constipation Sodium Chloride (Ns Flush) 2 ml IV.FLUSH BID [facility] Last Admin: 07/14/18 10:31 Dose: 2 ml Sodium Chloride (Ns Flush) 2 ml IV.FLUSH PRN PRN PRN Reason: FLUSH AFTER USING IV ACCESS Torsemide (Demadex) 20 mg PO BID [facility] Last Admin: 07/14/18 10:30 Dose: 20 mg Allergies Allergy/AdvReac Type Severity Reaction Status Date / Time No Known Allergies Allergy Verified 07/06/18 21:12 Home Medications Medication Instructions Recorded Confirmed Type allopurinol 1 tab PO DAILY 05/23/18 07/07/18 History atenolol 0.5 tab PO DAILY 05/23/18 07/07/18 History donepezil 1 tab PO HS 05/23/18 07/07/18 History gabapentin 1 tab PO HS 05/23/18 07/07/18 History levothyroxine 1 tab PO DAILY 05/23/18 07/07/18 History memantine 1 tab PO DAILY 05/23/18 07/07/18 History mirtazapine 1 tab PO HS 05/23/18 07/07/18 History multivitamin 1 tab PO DAILY 05/23/18 07/07/18 History torsemide 1 tab PO BID 05/23/18 07/07/18 History albuterol sulfate [Ventolin HFA] 2 puff INHALATION Q6H PRN 06/12/18 07/07/18 History cholecalciferol (vitamin D3) 1,000 unit PO DAILY 06/12/18 07/07/18 History [Vitamin D3] cyanocobalamin (vitamin B-12) 1,000 mcg PO DAILY 06/12/18 07/07/18 History [Vitamin B-12] ipratropium-albuterol 3 ml INHALATION Q6H PRN 06/12/18 07/07/18 History potassium chloride 20 meq PO BID 06/12/18 07/07/18 History Advance Directives Living Will: Yes Healthcare Surrogate: Yes Health Care Surrogate Name and Number: Mat Devries Power of Sole Assessor: Yes Ethical and Legal Issues: Patient is unable to make decisions due to dementia, confusion. She has healthcare surrogate dated January 2015 naming daughter Talya Devries as healthcare surrogate. She also has POA paperwork naming same daughter. Secondary is named as Pavel Devries. Physical Exam Vital Signs: Vital Signs - 24 hr 07/13/18 15:00 07/13/18 16:00 07/13/18 16:01 Temperature 98.2 F Pulse Rate 66 56 L 56 L Respiratory Rate 34 H 27 H 31 H Blood Pressure 129/56 L Pulse Oximetry 93 L 92 L 92 L 07/13/18 17:00 07/13/18 17:08 07/13/18 18:00 Temperature Pulse Rate 60 59 L 58 L Respiratory Rate 39 H 40 H 36 H Blood Pressure 110/67 Pulse Oximetry 92 L 93 L 92 L 07/13/18 19:00 07/13/18 19:16 07/13/18 20:00 Temperature 97.6 F Pulse Rate 66 51 L 65 Respiratory Rate 28 H 26 H 39 H Blood Pressure 136/57 L Pulse Oximetry 92 L 89 L 89 L 07/13/18 20:09 07/13/18 21:00 07/13/18 21:35 Temperature Pulse Rate 58 L 74 103 H Respiratory Rate 26 H 37 H 27 H Blood Pressure 155/63 H 149/99 H Pulse Oximetry 91 L 87 L 90 L 07/13/18 22:00 07/13/18 22:06 07/13/18 22:19 Temperature Pulse Rate 52 L 57 L 68 Respiratory Rate 27 H 26 H 28 H Blood Pressure 138/72 Pulse Oximetry 90 L 92 L 89 L 07/13/18 23:00 07/13/18 23:01 07/14/18 00:00 Temperature 97.6 F Pulse Rate 59 L 59 L 42 L Respiratory Rate 24 24 29 H Blood Pressure 138/89 Pulse Oximetry 87 L 88 L 91 L 07/14/18 00:02 07/14/18 01:00 07/14/18 01:01 Temperature Pulse Rate 62 56 L 52 L Respiratory Rate 29 H 23 22 Blood Pressure 126/56 L 130/60 Pulse Oximetry 90 L 90 L 90 L 07/14/18 02:00 07/14/18 02:03 07/14/18 03:00 Temperature Pulse Rate 56 L 59 L 52 L Respiratory Rate 37 H 27 H 23 Blood Pressure 103/74 Pulse Oximetry 89 L 89 L 85 L 07/14/18 03:08 07/14/18 04:00 07/14/18 04:01 Temperature 97.6 F Pulse Rate 59 L 48 L 46 L Respiratory Rate 22 19 20 Blood Pressure 125/56 L 131/61 Pulse Oximetry 96 97 07/14/18 05:00 07/14/18 05:01 07/14/18 06:00 Temperature Pulse Rate 51 L 35 L 57 L Respiratory Rate 28 H 29 H 24 Blood Pressure 163/66 H Pulse Oximetry 94 L 95 95 07/14/18 06:01 07/14/18 07:00 07/14/18 07:01 Temperature Pulse Rate 54 L 34 L 37 L Respiratory Rate 25 H 16 16 Blood Pressure 142/67 H 120/57 L Pulse Oximetry 94 L 94 L 94 L 07/14/18 08:00 07/14/18 08:01 07/14/18 09:00 Temperature 98.7 F Pulse Rate 45 L 53 L 37 L Respiratory Rate 18 19 18 Blood Pressure 138/64 Pulse Oximetry 94 L 95 94 L 07/14/18 09:01 07/14/18 10:00 07/14/18 10:01 Temperature Pulse Rate 34 L 60 52 L Respiratory Rate 17 26 H 41 H Blood Pressure 112/54 L 122/59 L Pulse Oximetry 93 L 93 L 91 L 07/14/18 11:00 07/14/18 11:01 07/14/18 12:00 Temperature Pulse Rate 52 L 114 H 36 L Respiratory Rate 27 H 26 H Blood Pressure 123/64 Pulse Oximetry 91 L 91 L I&O: Intake & Output 07/12/18 07/13/18 07/14/18 07/15/18 06:59 06:59 06:59 06:59 Intake Total 880 / 880 1920 / 1920 680 / 680 Output Total 1999 900 / 900 Balance -1120 / -1120 -80 / -80 -220 / -220 Weight 102 kg 102 kg Physical Exam: CONSTITUTIONAL/GENERAL: This is an adequately nourished patient, elderly female confused TUBES/LINES/DRAINS: Peripheral IV left forearm. Nasal cannula. External wick urine collection device. SKIN: No jaundice, rashes, or lesions. No wounds seen anteriorly. Skin warm/ dry. Slight edema/erythema right lower leg. HEAD: Atraumatic. Normocephalic. EYES: Pupils equal and round and reactive. Extraocular motions intact. No scleral icterus. No injection or drainage. Fundi not examined. ENT: Hearing grossly normal. Nose without bleeding or purulent drainage. Throat without visible erythema, exudates, masses, or lesions. NECK: Trachea midline. Supple, nontender. No palpable thyroid enlargement or nodularity. CARDIOVASCULAR: irregular rate. no murmur appreciated. No JVD. Peripheral pulses faint. RESPIRATORY/CHEST: Symmetric, unlabored respirations, on 4L NC. Difficult to auscultate as pt continues to talk during exam, but Clear to auscultation. Breath sounds equal bilaterally. GASTROINTESTINAL: Abdomen soft, non-tender, nondistended. No palpable masses. No guarding. Bowel sounds present. GENITOURINARY: Without palpable bladder distension. external wick cath in place , clear yellow urine noted in container. MUSCULOSKELETAL: Extremities without clubbing, cyanosis, or edema. No joint tenderness or effusion noted. No calf tenderness. No mottling or clubbing. LYMPHATICS: No palpable cervical or supraclavicular adenopathy. NEUROLOGICAL: Awakens to exam. moves all 4 extremities. does not follow commands. She is confused, repetitive- asks me the same question "what time is it". PSYCHIATRIC: No obvious anxiety/depression. Diagnostic Tests Laboratory: Laboratory Results - last 72 hr 07/12/18 07/13/18 07/13/18 07:41 05:18 05:18 WBC 6.3 RBC 3.25 L Hgb 9.8 L Hct 29.0 L MCV 89.1 MCH 30.2 MCHC 33.9 RDW 17.8 H Plt Count 138 L MPV 7.0 Neut % (Auto) 71.0 H Lymph % (Auto) 13.5 Summers % (Auto) 7.7 Eos % (Auto) 7.0 H Baso % (Auto) 0.8 Neut # (Auto) 4.4 Lymph # (Auto) 0.8 L Summers # (Auto) 0.5 Eos # (Auto) 0.4 Baso # (Auto) 0.0 WBC Differential . Differential Comment Auto diff final Sodium 140 Potassium 3.8 Chloride 103 Carbon Dioxide 30.5 Anion Gap 7 BUN 20 H Creatinine 1.54 H 1.55 H Estimated GFR 32 L 32 L Random Glucose 114 H Calcium 8.6 Magnesium 2.1 Total Creatine Kinase Troponin I TSH Free T4 Nasal Screen MRSA (PCR) Random Vancomycin 14.1 07/13/18 07/13/18 07/13/18 09:30 11:06 11:06 WBC RBC Hgb Hct MCV MCH MCHC RDW Plt Count MPV Neut % (Auto) Lymph % (Auto) Summers % (Auto) Eos % (Auto) Baso % (Auto) Neut # (Auto) Lymph # (Auto) Summers # (Auto) Eos # (Auto) Baso # (Auto) WBC Differential Differential Comment Sodium Potassium Chloride Carbon Dioxide Anion Gap BUN Creatinine Estimated GFR Random Glucose Calcium Magnesium Total Creatine Kinase Troponin I 0.03 TSH 30.800 H Free T4 0.94 Nasal Screen MRSA (PCR) Not detected Random Vancomycin 07/13/18 07/14/18 11:06 05:23 WBC RBC Hgb Hct MCV MCH MCHC RDW Plt Count MPV Neut % (Auto) Lymph % (Auto) Summers % (Auto) Eos % (Auto) Baso % (Auto) Neut # (Auto) Lymph # (Auto) Summers # (Auto) Eos # (Auto) Baso # (Auto) WBC Differential Differential Comment Sodium 140 Potassium 3.4 L Chloride 101 Carbon Dioxide 29.7 Anion Gap 9 BUN 20 H Creatinine 1.54 H Estimated GFR 32 L Random Glucose 112 H Calcium 9.2 Magnesium 2.3 Total Creatine Kinase 54 Troponin I 0.03 TSH Free T4 Nasal Screen MRSA (PCR) Random Vancomycin Result Diagrams: 07/13/18 05:18 07/14/18 05:23 Microbiology: Microbiology 07/06/18 21:35 Aerobic Blood Culture - Final Blood - Peripheral No growth in 5 days Anaerobic Blood Culture - Final No growth in 5 days 07/06/18 21:40 Aerobic Blood Culture - Final Blood - Peripheral No growth in 5 days Anaerobic Blood Culture - Final No growth in 5 days Patient/Family Conference Family Conference Location: [facility] Issues Discussed: Call to mat Babin discussion included the following: * Palliative care role, purpose, approach * Additional medical, psychosocial, history * Patients general health, functional status, and cognitive changes in the months leading up to the current hospitalization * Patient/family understanding of the current medical problems * Patient/family understanding of prognosis; review that untreated bradycardia will likely progress to life limiting, terminal * Patients goals of care as best understood from advance directives and/or conversations and/or values * Current medical treatment options and benefits/burdens of those options * Likely scenarios comparing ongoing aggressive care with a transition to comfort measures only-review of hospice role, services * Review of legal decision makers, verified healthcare surrogate documents via email (daughter, granddaughter emailed me copy of POA, HCS, will print and place in chart.) * Questions answered to the best of my ability * Palliative care contact information provided Spoke with daughter on the phone, reviewed hospital course up until this point. Reviewed with her most recent hospitalization. Review with her patient physical and cognitive status prior to most recent admissions. She endorses patient cognitive status has been progressively and steadily worsening. She endorses most of the time the patient does not even recognize her anymore. She feels the patient now needs full care of long-term nursing facility. Upon review of hospitalization and potential interventions for bradycardia, daughter endorses that the patient would not want artificially prolonging measures such as a pacemaker. She understands that untreated bradycardia may remain stable, however also may deteriorate until asystole and . She is amenable to hospice consultation for hospice services to follow at facility should the pt develop symptoms. All questions answered to the best my ability. -- 1700 later received callback from daughter, she indicates she would like to hold on any further meetings with hospice until talking to cardiology again. I did phone Dr. Parra and spoke with him to update, he is amenable to patient being discharged back to facility without hospice if they will accept her. He will also call patient daughter back. Assessment and Plan - Disease Oriented Problem List (1) Bradycardia (2) Pneumonia (3) Cellulitis (4) Peripheral arterial disease (5) Atrial fibrillation (6) Dementia - Symptom Scale (1) Pain 0-10 Scale: Unable to quantify Pertinent Non-Medical Issues: Psychosocial: Originally from [place] though has lived in [place] with her daughter for several years. Formerly worked in [employer] industry at [employer]. Supported by 2 daughters, and grandchildren Spiritual: [employer]. Legal:Patient is unable to make decisions due to dementia, confusion. She has healthcare surrogate dated January 2015 naming daughter Talya Devries as healthcare surrogate. She also has POA paperwork naming same daughter. Secondary is named as Pavel Devries. Ethical issues impacting care: No ethical issues identified. Important Contacts: Mat Devries [phone] Prognosis: This patient was admitted for edema and pain to lower extremity and concern for DVT. Doppler studies negative, treated for cellulitis. Still continuing to have some residual pain. Has developed bradycardia in the rate of 20s-30s during hospital course. Family does not wish to proceed with pacemaker which was discussed with cardiology. Should she continue to have bradycardia, deterioration she would be appropriate for hospice for comfort. Code Status: No Code DNR Plan: Legal decision maker:Patient is unable to make decisions due to dementia, confusion. She has healthcare surrogate dated January 2015 naming daughter Talya Devries as healthcare surrogate. She also has POA paperwork naming same daughter. Secondary is named as Pavel Devries. Goals: Goals at this time are for no further artificial or invasive measures with hospice services for comfort and support should her condition continue to decline. They want no further hospitalizations. Requested DNR status. Hospice consult is ordered, DNR order placed. --Updated medical attending, primary nurse 1700-- later received callback from daughter, she indicates she would like to hold on any further meetings with hospice until talking to cardiology again. I did phone Dr. Parra and spoke with him to update, he is amenable to patient being discharged back to facility without hospice if they will accept her. He will also call patient daughter back. CODE STATUS: DNR SYMPTOMS: --Confusion-patient with baseline dementia and progressive worsened confusion , now hospitalized for a few days, may be some component of delirium from environment changes, medications --Pain-she was recently hospitalized for lower extremity DVT. This admission readmitted for pain, swelling to right lower extremity. She is being treated for cellulitis, erythema and edema have improved during hospital course. She continues to endorse pain to lower extremity. She does have prn [place] 5mg ordered, she is increasingly lethargic if PRN is given. Has been using about once per day past few days. Discussed balancing benefits/burdens of pain meds w lethargy w daughter. Palliative care will continue to follow during hospital course as condition evolves, to assist patient/decision-maker with understanding of medical conditions, weighing benefits/burdens of treatment options, for clarification of goals of treatment. Additionally will assist with any symptoms of palliative concern Appreciation Thank you for the opportunity to participate in the care of Jenna De Luna. Attestation Attestation: To help prompt me to consider important information that might be impacting today's encounter and assessment, information from prior notes written by myself or my colleagues may have been "brought forward" into today's note. My signature on this note, however, is an attestation that I personally performed the exam, history, and/or decision-making noted today, and, unless otherwise indicated, the interactions with patient, family, and staff as well as the review of records all occurred today. I also attest that the listed assessment and stated plan reflect my best clinical judgment today based on the combination of historical information, prior notes, and today's exam/ interactions. When time spent is documented, it refers only to time spent today by the signer, or if indicated, combined time spent today by collaborating physician/nurse practitioner.
--- NOTE | 2018-07-14 16:11 | P.PNIM ---
Subjective Interval history: Patient layin down in bed. She is not in any acute distress. No symptoms of bradycardia noted. Physical Exam Vital signs: Vital Signs 07/13/18 17:00 07/13/18 17:08 07/13/18 18:00 Temperature Pulse Rate 60 59 L 58 L Respiratory Rate 39 H 40 H 36 H Blood Pressure 110/67 Pulse Oximetry 92 L 93 L 92 L 07/13/18 19:00 07/13/18 19:16 07/13/18 20:00 Temperature 97.6 F Pulse Rate 66 51 L 65 Respiratory Rate 28 H 26 H 39 H Blood Pressure 136/57 L Pulse Oximetry 92 L 89 L 89 L 07/13/18 20:09 07/13/18 21:00 07/13/18 21:35 Temperature Pulse Rate 58 L 74 103 H Respiratory Rate 26 H 37 H 27 H Blood Pressure 155/63 H 149/99 H Pulse Oximetry 91 L 87 L 90 L 07/13/18 22:00 07/13/18 22:06 07/13/18 22:19 Temperature Pulse Rate 52 L 57 L 68 Respiratory Rate 27 H 26 H 28 H Blood Pressure 138/72 Pulse Oximetry 90 L 92 L 89 L 07/13/18 23:00 07/13/18 23:01 07/14/18 00:00 Temperature 97.6 F Pulse Rate 59 L 59 L 42 L Respiratory Rate 24 24 29 H Blood Pressure 138/89 Pulse Oximetry 87 L 88 L 91 L 07/14/18 00:02 07/14/18 01:00 07/14/18 01:01 Temperature Pulse Rate 62 56 L 52 L Respiratory Rate 29 H 23 22 Blood Pressure 126/56 L 130/60 Pulse Oximetry 90 L 90 L 90 L 07/14/18 02:00 07/14/18 02:03 07/14/18 03:00 Temperature Pulse Rate 56 L 59 L 52 L Respiratory Rate 37 H 27 H 23 Blood Pressure 103/74 Pulse Oximetry 89 L 89 L 85 L 07/14/18 03:08 07/14/18 04:00 07/14/18 04:01 Temperature 97.6 F Pulse Rate 59 L 48 L 46 L Respiratory Rate 22 19 20 Blood Pressure 125/56 L 131/61 Pulse Oximetry 96 97 07/14/18 05:00 07/14/18 05:01 07/14/18 06:00 Temperature Pulse Rate 51 L 35 L 57 L Respiratory Rate 28 H 29 H 24 Blood Pressure 163/66 H Pulse Oximetry 94 L 95 95 07/14/18 06:01 07/14/18 07:00 07/14/18 07:01 Temperature Pulse Rate 54 L 34 L 37 L Respiratory Rate 25 H 16 16 Blood Pressure 142/67 H 120/57 L Pulse Oximetry 94 L 94 L 94 L 07/14/18 08:00 07/14/18 08:01 07/14/18 09:00 Temperature 98.7 F Pulse Rate 45 L 53 L 37 L Respiratory Rate 18 19 18 Blood Pressure 138/64 Pulse Oximetry 94 L 95 94 L 07/14/18 09:01 07/14/18 10:00 07/14/18 10:01 Temperature Pulse Rate 34 L 60 52 L Respiratory Rate 17 26 H 41 H Blood Pressure 112/54 L 122/59 L Pulse Oximetry 93 L 93 L 91 L 07/14/18 11:00 07/14/18 11:01 07/14/18 12:00 Temperature Pulse Rate 52 L 114 H 36 L Respiratory Rate 27 H 26 H Blood Pressure 123/64 Pulse Oximetry 91 L 91 L Intake & Output 07/13/18 07/14/18 07/14/18 18:59 06:59 18:59 Intake Total 200 / 200 480 / 480 Output Total 900 / 900 Balance 200 / 200 -420 / -420 Weight 102 kg Intake: Oral 200 / 200 480 / 480 Output: Urine 900 / 900 Other: # Voids 5 Date of Last Bowel Movement 07/12/18 07/12/18 07/12/18 # Bowel Movements 3 0 Narrative: Patient laying down in bed. In no acute distress. No complaints from the patient. S1S2, bradycardic CTA b/l Abd soft,nontender, nondistended, bowel sounds are present. No edema of the exts. No focal neuro deficits, moves all 4 exts, sensation intact b/l Results Labs CBC & Chem 7: 07/13/18 05:18 07/14/18 05:23 Assessment and Plan (1) Bradycardia: Code(s): R00.1 - Bradycardia, unspecified Status: Acute Plan This patient is an 87 y/o F with a dx of Dementia, gout, HTN, DLD, and Hypothyroidism. Patient was recently admitted to the hospital and underwent iliac thrombectomy on 06/13/18 under the care of Vascular surgery. She was admitted again for right lower ext cellulitis. 07/14/18 I discussed the patient's case with the cardiology team yesterday and today. Given the patient's overall condition and current AV block with HR ranging from 25 to 50s Cardiology discussed the option of a pacemaker with the patient's daughter as the pt is demented and unable to make her own decisions. The daughter does not want any further intervention and does not want a pacemaker to be placed. We will continue to hold donepezil and atenolol and monitor the patient. Patient is DNR. Palliative care consult placed. I discussed the case with palliative care over the phone who reached out to the patient's daughter and wants the patient to go home with hospice. I will discuss the case with case management as well as the patient's family and then move forward with planning for hospice. 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 A fib I was called by the [facility] nurse this morning to evaluate the patient for Telemetry showing a Heart rate in the low 30s. Patient was asymptomatic during the episodes. I asked for the patient to be transferred to [facility] for closer evaluation and possible need for Atropine. Cardiology was consulted, I will follow up with their recs. Cardiac enzymes and troponins ordered. Monitor closely on telemetry. Patient is on a betablocker which was held. Donepezil also held which can cause AV block. She has a hx of atrial fibrillation as well as lower ext clots s/p thrombectomy and is currently on Xarelto. 3. Right lower ext cellulitis U/s of the lower ext negative for DVT S/p tx with vanco and zosyn On PO antibiotics. 4. Recent right Iliac thrombectomy Continue xarelto Vasc surgery evaluated pt, signed off. Pt will follow up outpt in two weeks with vasc surg after discharge. 5. Acute hypoxic resp failure 2/2 HAPNA S/P antibiotics Weaned off of oxygen. 6. UTI Cx grew enterococcus faecalis Blood cxs negative Completed tx 7. TABITHA on CKD stage III Cr stable over the past few days Avoid nephrotoxic agents. 8. HTN Continue current meds Monitor bp, adjust meds as needed. Atenolol stopped due to bradycardia. 9. Dementia Chronic, donepezil held, can cause AV block. DVT prophylaxis, pt is on Xarelto. Progress Note: Quality VTE Deep Vein Thrombosis/Pulmonary Embolism Present on Admission: No
[2018-07-14] MEDS: Gabapentin 300 MG Capsule PO SCH (20:36)
[2018-07-14] MEDS: Mirtazapine 15 MG Tablet PO SCH (20:36)
[2018-07-15] MEDS: Chlorhexidine Gluconate 2% 1 Pack (2 Cloths) TOPICAL SCH ×2 (03:10→03:11)
[2018-07-15] MEDS: Levothyroxine 150 MCG Tablet PO SCH (05:24)
[2018-07-15] MEDS: Amoxicillin/Clavulanate 875/125 MG Tablet PO SCH ×2 (09:23→20:33)
[2018-07-15] MEDS: Allopurinol 100 MG Tablet PO SCH (09:23)
[2018-07-15] MEDS: Torsemide 20 MG Tablet PO SCH ×2 (09:23→20:33)
[2018-07-15] MEDS: Rivaroxaban 15 MG Tablet PO SCH ×2 (09:24→20:34)
[2018-07-15] MEDS: Acetaminophen 325 MG Tablet PO PRN (09:24)
--- NOTE | 2018-07-15 16:47 | P.PNIM ---
Subjective Interval history: Patient laying down in bed. Demented, occasionally screams out. Responds to questions however is not always appropriate. Physical Exam Vital signs: Vital Signs 07/14/18 17:00 07/14/18 17:05 07/14/18 18:00 Temperature Pulse Rate 75 55 L 279 H Respiratory Rate 25 H 25 H 24 Blood Pressure 141/59 H Pulse Oximetry 96 95 99 07/14/18 18:01 07/14/18 19:00 07/14/18 19:01 Temperature Pulse Rate 149 H 102 H 78 Respiratory Rate 30 H 40 H 33 H Blood Pressure 101/67 126/60 Pulse Oximetry 96 94 L 94 L 07/14/18 20:00 07/14/18 20:01 07/14/18 21:00 Temperature 98.6 F Pulse Rate 59 L 60 81 Respiratory Rate 26 H 21 34 H Blood Pressure 139/63 Pulse Oximetry 94 L 94 L 97 07/14/18 21:01 07/14/18 22:00 07/14/18 22:01 Temperature Pulse Rate 163 H 50 L 51 L Respiratory Rate 26 H 31 H 28 H Blood Pressure 147/67 H 142/60 H Pulse Oximetry 97 97 97 07/14/18 23:00 07/14/18 23:01 07/15/18 00:00 Temperature 98.3 F Pulse Rate 63 51 L 41 L Respiratory Rate 21 24 18 Blood Pressure 130/58 L Pulse Oximetry 93 L 94 L 95 07/15/18 00:01 07/15/18 01:00 07/15/18 01:01 Temperature Pulse Rate 40 L 37 L 37 L Respiratory Rate 16 17 24 Blood Pressure 125/55 L 120/66 Pulse Oximetry 95 97 97 07/15/18 02:00 07/15/18 02:01 07/15/18 03:00 Temperature Pulse Rate 36 L 39 L 46 L Respiratory Rate 15 19 22 Blood Pressure 115/53 L Pulse Oximetry 98 98 97 07/15/18 03:01 07/15/18 04:00 07/15/18 04:01 Temperature 98.5 F Pulse Rate 60 45 L 38 L Respiratory Rate 26 H 20 19 Blood Pressure 140/58 L 115/53 L Pulse Oximetry 97 97 97 07/15/18 05:00 07/15/18 05:01 07/15/18 06:00 Temperature Pulse Rate 119 H 66 175 H Respiratory Rate 24 28 H 41 H Blood Pressure 130/72 Pulse Oximetry 97 97 94 L 07/15/18 06:18 07/15/18 06:19 07/15/18 07:00 Temperature Pulse Rate 58 L 58 L 48 L Respiratory Rate 16 18 25 H Blood Pressure 148/65 H Pulse Oximetry 100 91 L 91 L 07/15/18 07:01 07/15/18 08:00 07/15/18 08:01 Temperature 98.7 F Pulse Rate 42 L 48 L 42 L Respiratory Rate 29 H 29 H 23 Blood Pressure 122/53 L 122/53 L Pulse Oximetry 91 L 81 L 80 L 07/15/18 09:00 07/15/18 09:01 07/15/18 09:22 Temperature Pulse Rate 46 L 38 L 49 L Respiratory Rate 28 H 25 H 17 Blood Pressure 103/47 L 144/60 H Pulse Oximetry 97 97 97 07/15/18 10:00 07/15/18 10:01 07/15/18 11:00 Temperature Pulse Rate 59 L 56 L 186 H Respiratory Rate 23 34 H 30 H Blood Pressure 174/78 H Pulse Oximetry 95 96 77 L 07/15/18 11:01 07/15/18 11:05 07/15/18 11:35 Temperature Pulse Rate 150 H 51 L 58 L Respiratory Rate 43 H 22 Blood Pressure 151/121 H 128/54 L Pulse Oximetry 87 L 07/15/18 12:00 07/15/18 12:01 07/15/18 13:00 Temperature Pulse Rate 35 L 85 110 H Respiratory Rate 26 H 36 H 37 H Blood Pressure 95/58 L Pulse Oximetry 87 L 91 L 89 L 07/15/18 13:05 07/15/18 14:00 07/15/18 14:31 Temperature Pulse Rate 59 L 61 82 Respiratory Rate 31 H 28 H 36 H Blood Pressure 76/47 L 128/58 L Pulse Oximetry 84 L 83 L 93 L 07/15/18 15:00 07/15/18 16:00 Temperature Pulse Rate 140 H 105 H Respiratory Rate 30 H Blood Pressure Pulse Oximetry 93 L Intake & Output 07/14/18 07/15/18 07/15/18 18:59 06:59 18:59 Intake Total 300 / 300 Output Total 850 / 850 Balance -550 / -550 Weight 70.5 kg Intake: Oral 300 / 300 Output: Urine 850 / 850 Other: # Voids 2 Date of Last Bowel Movement 07/12/18 07/15/18 07/12/18 # Bowel Movements 1 Narrative: Patient laying down in bed. In no acute distress. No complaints from the patient. S1S2, bradycardic CTA b/l Abd soft,nontender, nondistended, bowel sounds are present. No edema of the exts. No focal neuro deficits, moves all 4 exts, sensation intact b/l Results Labs CBC & Chem 7: 07/13/18 05:18 07/14/18 05:23 Assessment and Plan Plan This patient is an 87 y/o F with a dx of Dementia, gout, HTN, DLD, and Hypothyroidism. Patient was recently admitted to the hospital and underwent iliac thrombectomy on 06/13/18 under the care of Vascular surgery. She was admitted again for right lower ext cellulitis. 07/15/18 Patient evaluated, vitals and labs reviewed. Palliative care evaluated the patient and discussed the case with the patient's daughter Talya. The daughter does not want any further intervention and wants the patient to go forward with hospice. I spoke to Talya Devries who is the patient's daughter today who wants to move forward with hospice and is meeting with them tomorrow. She does not want any heroic measure for her mother and wants her to be in peace and be comfortable. Case will be discussed with case management. Patient is DNR. I will move the patient out of the ICU. [place] prn pain, ativan as needed for agitation. 07/14/18 I discussed the patient's case with the cardiology team yesterday and today. Given the patient's overall condition and current AV block with HR ranging from 25 to 50s Cardiology discussed the option of a pacemaker with the patient's daughter as the pt is demented and unable to make her own decisions. The daughter does not want any further intervention and does not want a pacemaker to be placed. We will continue to hold donepezil and atenolol and monitor the patient. Patient is DNR. Palliative care consult placed. I discussed the case with palliative care over the phone who reached out to the patient's daughter and wants the patient to go home with hospice. I will discuss the case with case management as well as the patient's family and then move forward with planning for hospice. 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 A fib I was called by the [facility] nurse this morning to evaluate the patient for Telemetry showing a Heart rate in the low 30s. EKG appears to show an av block. I will discuss the EKG with cardiology. Patient was asymptomatic during the episodes. I asked for the patient to be transferred to [facility] for closer evaluation and possible need for Atropine. Cardiology was consulted, I will follow up with their recs. Cardiac enzymes and troponins ordered. Monitor closely on telemetry. Patient is on a betablocker which was held. Donepezil also held which can cause AV block. She has a hx of atrial fibrillation as well as lower ext clots s/p thrombectomy and is currently on Xarelto. 3. Right lower ext cellulitis U/s of the lower ext negative for DVT S/p tx with vanco and zosyn On PO antibiotics. 4. Recent right Iliac thrombectomy Continue xarelto Vasc surgery evaluated pt, signed off. Pt will follow up outpt in two weeks with vasc surg after discharge. 5. Acute hypoxic resp failure 2/2 HAPNA S/P antibiotics Weaned off of oxygen. 6. UTI Cx grew enterococcus faecalis Blood cxs negative Completed tx 7. TABITHA on CKD stage III Cr stable over the past few days Avoid nephrotoxic agents. 8. HTN Continue current meds Monitor bp, adjust meds as needed. Atenolol stopped due to bradycardia. 9. Dementia Chronic, donepezil held, can cause AV block. DVT prophylaxis, pt is on Xarelto. Progress Note: Quality VTE Deep Vein Thrombosis/Pulmonary Embolism Present on Admission: No
[2018-07-15] MEDS: LORazepam 0.5 MG Tablet PO PRN (17:32)
[2018-07-15] MEDS: Gabapentin 300 MG Capsule PO SCH (20:34)
[2018-07-15] MEDS: Mirtazapine 15 MG Tablet PO SCH (20:34)
[2018-07-16] MEDS: Chlorhexidine Gluconate 2% 1 Pack (2 Cloths) TOPICAL SCH (06:32)
[2018-07-16] MEDS: Levothyroxine 150 MCG Tablet PO SCH (06:32)
[2018-07-16 09:16] VITALS: TEMP 98
[2018-07-16] MEDS: LORazepam 0.5 MG Tablet PO PRN (11:00)
[2018-07-16] MEDS: Amoxicillin/Clavulanate 875/125 MG Tablet PO SCH (11:52)
[2018-07-16] MEDS: Allopurinol 100 MG Tablet PO SCH (11:53)
[2018-07-16] MEDS: Torsemide 20 MG Tablet PO SCH (11:53)
[2018-07-16] MEDS: Rivaroxaban 15 MG Tablet PO SCH (11:53)
[2018-07-16] MEDS ORDERED: Morphine Sulfate Inj 2 MG/ML Vial IV.PUSH PRN (13:21)
--- NOTE | 2018-07-16 13:29 | P.DS ---
DS: Providers Date of admission: 07/08/18 14:49 Primary care physician: UNKNOWN Consults: 07/07/18 00:08 HUB Only Consult Order Routine Consulting Provider: [facility] 07/07/18 10:15 HUB Only Consult Order Routine Consulting Provider: Nadiya Clifford,Agency 07/07/18 12:19 HUB Only Consult Order Routine Consulting Provider: Debi Ignacio,Agency 07/07/18 16:06 Consult to Vascular Surgery Routine Consulting Provider: Abraham Muñoz Preferred [place]arrow Worker:: Abraham Muñoz Reason for Consultation: pt with recent iliac thrombectomy, here for RLE cellulitis. Family requesting consultation. Notified:: Physician Spoke with:: DR. MUÑOZ Date Notified:: 07/07/18 Time Notified:: 16:32 Ordering Provider: JOSEMANUEL 07/13/18 08:32 Consult to Cardiology Routine Consulting Provider: Ken Parra Does the patient have a Supervisor Cereal who follows them?: No Preferred Rate Quoting Operator:: Sales Product Specialist Physician Reason for Consultation: Bradycardia Notified:: Office Spoke with:: SELENE Date Notified:: 07/13/18 Time Notified:: 08:44 Ordering Provider: SANYA 07/14/18 14:09 Consult to Palliative Care Routine Consulting Provider: Sergei Kerr Reason for Consultation: goals of care Notified:: Service Spoke with:: GWEN Date Notified:: 07/14/18 Time Notified:: 14:12 Ordering Provider: NED Brief History from admission: 87-year-old female with a history of dementia, gout, hypertension, hyperlipidemia and hypothyroidism was sent to the ER by nursing facility complaints of redness and swelling to the right lower extremity . Patient is demented so ROS is limited, she is only oriented to self. The ER physician reported the [facility] after they noticed redness and swelling to her right lower extremity. She did have internal and external iliac thrombectomies on her right leg on 06/13/18. DS: Summary This patient is an 87 y/o F with a dx of Dementia, gout, HTN, DLD, and Hypothyroidism. Patient was recently admitted to the hospital and underwent iliac thrombectomy on 06/13/18 under the care of Vascular surgery. She was admitted again for right lower ext cellulitis. 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 A fib Patient was found to be bradycardic on medicine floor. EKG showed type two heart block [place]. Cardiology consulted and recommended holding the pts bb. Donepezil also held due to av block as side effect potentially. No improvement in heart rate over [address] Parra discussed case with family about pacemaker. They did not want any procedures done for the patient. Patient's overall condition discussed with the daughter Talya Devries and the decision was made to move forward with hospice. Patient is also demented at baseline and is a and o x 1 to person only. Patient evaluated, labs and vitals were reviewed. Patient is occasionally complaining of pain, Morphine IV started for breakthrough pain. Hospice will take the patient to their care center today around 3PM. I discussed the case in detail with the pts daughter Talya Devries yesterday and the plan of care. Patient is DNR. Medications will be adjusted by hospice. 07/15/18 Patient evaluated, vitals and labs reviewed. Palliative care evaluated the patient and discussed the case with the patient's daughter Talya. The daughter does not want any further intervention and wants the patient to go forward with hospice. I spoke to Talya Devries who is the patient's daughter today who wants to move forward with hospice and is meeting with them tomorrow. She does not want any heroic measure for her mother and wants her to be in peace and be comfortable. Case will be discussed with case management. Patient is DNR. I will move the patient out of the ICU. [place] prn pain, ativan as needed for agitation. 07/14/18 I discussed the patient's case with the cardiology team yesterday and today. Given the patient's overall condition and current AV block with HR ranging from 25 to 50s Cardiology discussed the option of a pacemaker with the patient's daughter as the pt is demented and unable to make her own decisions. The daughter does not want any further intervention and does not want a pacemaker to be placed. We will continue to hold donepezil and atenolol and monitor the patient. Patient is DNR. Palliative care consult placed. I discussed the case with palliative care over the phone who reached out to the patient's daughter and wants the patient to go home with hospice. I will discuss the case with case management as well as the patient's family and then move forward with planning for hospice. 3. Right lower ext cellulitis U/s of the lower ext negative for DVT S/p tx with vanco and zosyn On PO antibiotics. 4. Recent right Iliac thrombectomy Continue xarelto Vasc surgery evaluated pt, signed off. Pt will follow up outpt in two weeks with vasc surg after discharge. 5. Acute hypoxic resp failure 2/2 HAPNA S/P antibiotics Weaned off of oxygen. 6. UTI Cx grew enterococcus faecalis Blood cxs negative Completed tx 7. TABITHA on CKD stage III Avoid nephrotoxic agents. 8. HTN Continue current meds Monitor bp, adjust meds as needed. Atenolol stopped due to bradycardia. Hospice to adjust all medications. Time Spent with Patient Total time spent providing and/or coordinating discharge services: Greater than 30 minutes Quality: VTE Deep Vein Thrombosis/Pulmonary Embolism Present on Admission: No Exam Narrative Exam Narrative: S1S2, bradycardic CTA b/l Abd soft,nontender, nondistended, bowel sounds are present. No edema of the exts. No focal neuro deficits, moves all 4 exts, sensation intact b/l Results Labs on day of discharge: Labs from last 24 hours 07/16/18 07:08 Creatinine 1.43 H Estimated GFR 35 L Impressions ITS Impressions Venous Doppler Study 07/06/18 21:19 CONCLUSION: 1. The study is negative for lower extremity deep venous thrombosis. Chest X-Ray 07/09/18 00:00 CONCLUSION: Mild infiltrate and small effusion in the left lower lung. Hip X-Ray 07/11/18 00:00 CONCLUSION: No acute bony abnormalities identified at the right hip. Discharge Plan Discharge Disposition Patient Disposition: [facility] Hospice/Med Facility Discharge Condition Condition: Stable Discharge Order Discharge Orders: Discharge Order (Routine); Ordered 07/12/18 Ordered By: Portia Estrada Discharge Details Anticipated Discharge Date: 07/16/18 Physicians Team ED Provider: Rylee Macdonald ED Midlevel Provider: Arcadio Richards Primary Care Provider: UNKNOWN, Attending Provider: Monisha Neumann Other Providers: [facility] ; Nadiya Clifford,Agency ; [facility] ; Abraham Muñoz ; Ken Parra ; Sergei Kerr Rxs /Orders / Referrals /Forms Prescriptions: Continue hydrocodone-acetaminophen 5-325 mg Tablet 1 tab PO Q8H PRN (Reason: Pain (Scale Score 7-10)) Qty: 9 RF: 0 multivitamin Tablet 1 tab PO DAILY RF: 0 torsemide 20 mg Tablet 1 tab PO BID RF: 0 allopurinol 100 mg Tablet 1 tab PO DAILY RF: 0 mirtazapine 30 mg Tablet 1 tab PO HS RF: 0 levothyroxine 150 mcg Tablet 1 tab PO DAILY RF: 0 gabapentin 300 mg Capsule 1 tab PO HS RF: 0 memantine 28 mg Capsule,Sprinkle,Er 24hr 1 tab PO DAILY RF: 0 cholecalciferol (vitamin D3) [Vitamin D3] 1,000 unit Capsule 1,000 unit PO DAILY RF: 0 potassium chloride 20 mEq Tablet Extended Release 20 meq PO BID RF: 0 ipratropium-albuterol 0.5 mg-3 mg(2.5 mg base)/3 mL Solution For Nebulization 3 ml INHALATION Q6H PRN (Reason: Shortness Of Breath Or Wheezing) RF: 0 cyanocobalamin (vitamin B-12) [Vitamin B-12] 500 mcg Tablet 1,000 mcg PO DAILY RF: 0 albuterol sulfate [Ventolin HFA] 90 mcg/actuation Hfa Aerosol Inhaler 2 puff INHALATION Q6H PRN (Reason: Wheezing) RF: 0 atorvastatin 40 mg Tablet 40 mg PO HS RF: 0 rivaroxaban [Xarelto] 15 mg Tablet 15 mg PO BID RF: 0 Discontinued donepezil 5 mg Tablet 1 tab PO HS RF: 0 atenolol 25 mg Tablet 0.5 tab PO DAILY RF: 0 cyanocobalamin (vitamin B-12) [Vitamin B-12] 1,000 mcg Tablet 1,000 mcg PO DAILY RF: 0 nifedipine [Procardia] 10 mg Capsule 10 mg PO QID RF: 0 Referrals: Primary Care Provider [Outside] - See Instructions ( Please call the physician's office to book the appointment to be seen within two to three days.) Abraham Muñoz MD [Physician] - See Instructions (Your follow up w/ a surveillance LEAH is scheduled on 07/28/18 at 10:30) UNKNOWN, [Primary Care Provider] - See Instructions Discharge Instructions Patient Printed Instructions: Amoxicillin/Clavulanate Potassium (By mouth), Fall Prevention for Older Adults (DC), Community Acquired Pneumonia (GEN) Additional Instructions: Patient being discharged to Hospice center, meds will be adjusted by the hospice team. Discharge Interventions Interventions: Discharge Planning - Case Management Last Done: 07/12/18 10:53 Status ED Status: Left Department
[2018-07-16] MEDS ORDERED: Morphine Sulfate Inj 2 MG/ML Vial IM ONE (14:30)
[2018-07-16 15:31] VITALS: BP 125/56; PULSE 91; RESP 32; O2SAT 78
== END 2018-07-16 15:45 | disposition hospice, inpatient (51) | DRG 602 ==
LOC: NEPE 21:06 → NEDA 21:06 → NEPFCDU 07-07 02:56 → N07 07-09 20:32 → HIMC 07-13 08:05
PROVIDERS: ADMIT Hospitalist; ATTEND Hospitalist
DX: L03.115 Cellulitis of right lower limb; N18.3 Chronic kidney disease, stage 3 (moderate); F02.80 Dementia in other diseases classified elsewhere, unspecified severity, without behavioral disturbance, psychotic disturbance, mood disturbance, and anxiety; N39.0 Urinary tract infection, site not specified; Z86.718 Personal history of other venous thrombosis and embolism; I12.9 Hypertensive chronic kidney disease with stage 1 through stage 4 chronic kidney disease, or unspecified chronic kidney disease; Z51.5 Encounter for palliative care; I44.1 Atrioventricular block, second degree; Z87.891 Personal history of nicotine dependence; N17.9 Acute kidney failure, unspecified; Z66 Do not resuscitate; I73.9 Peripheral vascular disease, unspecified; B95.2 Enterococcus as the cause of diseases classified elsewhere; J18.9 Pneumonia, unspecified organism; M10.9 Gout, unspecified; J96.01 Acute respiratory failure with hypoxia; Z78.1 Physical restraint status; E78.5 Hyperlipidemia, unspecified; M16.11 Unilateral primary osteoarthritis, right hip; G62.9 Polyneuropathy, unspecified; Z82.49 Family history of ischemic heart disease and other diseases of the circulatory system; G30.9 Alzheimer's disease, unspecified; Z91.81 History of falling; Y95 Nosocomial condition; Z79.01 Long term (current) use of anticoagulants; E03.9 Hypothyroidism, unspecified; F32.9 Major depressive disorder, single episode, unspecified; I48.0 Paroxysmal atrial fibrillation
CPT/HCPCS: 36600; 71010; 71045; 73502; 76937; 80048; 80053; 80202; 81001; 82550; 82565; 82805; 83605; 83735; 84439; 84443; 84484; 85025; 85610; 87040; 87077; 87086; 87186; 87641; 90765; 90766; 90775; 93005; 93971; 94640; 94665; 96365; 96366; 96375; 97163; 97167; 97535; 99285; G0378; J0171; J0461; J1265; J1630; J2270; J2405; J2543; J3370; J7030; J7040; J7050